=== PATIENT | female | born 1940 | race Caucasian/White ===

== ENCOUNTER → 2016-07-06 | Outpatient (REF) | payer MEDICARE, OTHER | LOC: M SFHCCLAY 09:38 | PROVIDERS: ATTEND Family Medicine | DX: L30.9 Dermatitis, unspecified (principal) ==

== ENCOUNTER → 2016-07-25 | Outpatient (CLI) | payer MEDICARE, OTHER ==
--- NOTE | 2016-07-27 08:52 | DEXA ---
AP SPINE L1 - L4 1.123 -0.6 1.2 LT FEMUR TOTAL 0.768 -1.9 -0.1 RT FEMUR TOTAL 0.769 -1.9 -0.1 TOTAL BODY TOTAL OTHER DUAL FEMUR FRAX* ASSESSMENT Risk factors: Premature menopause, rheumatoid arthritis. 10 year probability of fracture Major osteoporotic fracture 20.8 % Hip fracture 7.0 % COMMENTS: Normal bone densitometry of the spine. There is low bone density of the hips. FOLLOW-UP: Recommendation for the next bone density exam: 2 years. MTDD
== END ==
LOC: M WHC 11:27
PROVIDERS: ATTEND Family Medicine
DX: M81.0 Age-related osteoporosis without current pathological fracture (principal); M40.204 Unspecified kyphosis, thoracic region

== ENCOUNTER → 2017-04-26 | Outpatient (CLI) | payer MEDICARE, OTHER ==
[2017-04-26 18:56] LABS: EOS # 0.2 10^3/uL (0.0-0.50); EOS % 2.7 % (0.0-3.0); HEMATOCRIT 33.8 % (36.0-47.0); HEMOGLOBIN 11.5 g/dl (12.0-16.0); IMMATURE GRANULOCYTE % 0.2 % (0-0); LYMPH # 2.4 10^3/uL (1.5-4.5); LYMPH % 40.1 % (24.0-44.0); MEAN CORPUSCULAR VOLUME 94.2 fl (80.0-96.0); MONO # 0.4 10^3/uL (0.0-0.8); MONO % 7.4 % (0.0-5.0); NEUTROPHILS % 49.6 % (36.0-66.0); PLATELET COUNT, AUTOMATED 173 10^3/uL (150-450); RED BLOOD COUNT 3.59 10^6/uL (4.00-5.40); RED CELL DISTRIBUTION WIDTH 12.5 % (11.5-14.5); WHITE BLOOD COUNT 5.9 10^3/uL (4.0-10.0)
[2017-04-26 19:57] LABS: ALBUMIN 3.8 GM/DL (3.2-5.2); ALBUMIN/GLOBULIN RATIO 1.15 (1.00-1.93); ALKALINE PHOSPHATASE 40 U/L (45-117); ALT/SGPT 20 U/L (12-78); ANION GAP 5 MEQ/L (8-16); AST/SGOT 23 U/L (7-37); BILIRUBIN,TOTAL 0.6 MG/DL (0.2-1.0); BLOOD UREA NITROGEN 34 MG/DL (7-18); CALCIUM LEVEL 9.5 MG/DL (8.8-10.2); CARBON DIOXIDE LEVEL 29 MEQ/L (21-32); CHLORIDE LEVEL 103 MEQ/L (98-107); CREATININE FOR GFR 1.64 MG/DL (0.55-1.02); GLOMERULAR FILTRATION RATE 32.3 (>39); GLUCOSE, FASTING 82 MG/DL (70-100); SODIUM LEVEL 137 MEQ/L (136-145); TOTAL PROTEIN 7.1 GM/DL (6.4-8.2)
[2017-04-26 19:59] LABS: POTASSIUM SERUM 5.5 MEQ/L (3.5-5.1)
== END ==
LOC: M WUC 15:45
DX: N39.0 Urinary tract infection, site not specified (principal)
CPT/HCPCS: 80053

== ENCOUNTER → 2017-04-26 | Outpatient (REF) | payer MEDICARE, OTHER | LOC: M LAB REF 16:58 | DX: N39.0 Urinary tract infection, site not specified (principal) | CPT/HCPCS: 87186 ==

== ENCOUNTER → 2018-07-11 | Outpatient (REF) | payer MEDICARE, OTHER ==
[2018-07-11 17:27] LABS: CREATININE FOR GFR 0.97 MG/DL (0.55-1.30); GLOMERULAR FILTRATION RATE 59.1 (>39); POTASSIUM SERUM 4.5 MEQ/L (3.5-5.1)
[2018-07-11 17:28] LABS: ALBUMIN 3.7 GM/DL (3.2-5.2); BILIRUBIN,TOTAL 0.8 MG/DL (0.2-1.0); TOTAL PROTEIN 7.1 GM/DL (6.4-8.2)
[2018-07-11 17:29] LABS: HEMATOCRIT 37.4 % (36.0-47.0); HEMOGLOBIN 12.6 g/dl (12.0-15.5); MEAN CORPUSCULAR HEMOGLOBIN 31.7 pg (27.0-33.0); MEAN CORPUSCULAR HGB CONC 33.7 g/dl (32.0-36.5); MEAN CORPUSCULAR VOLUME 94.2 fl (80.0-96.0); PLATELET COUNT, AUTOMATED 178 10^3/uL (150-450); RED BLOOD COUNT 3.97 10^6/uL (4.00-5.40); WHITE BLOOD COUNT 5.7 10^3/uL (4.0-10.0)
== END ==
LOC: M SFHCCLAY 13:33
PROVIDERS: ATTEND Family Medicine
DX: I10 Essential (primary) hypertension (principal); J84.112 Idiopathic pulmonary fibrosis

== ENCOUNTER 2018-07-30 05:20 | Inpatient (IN) | payer MEDICARE, OTHER ==
[~2018-07-30] VITALS: Ht 149.9 cm; Wt 63.6 kg
[2018-07-30] MEDS ORDERED: METOPROLOL TART 25 MG TABLET PO ONE (05:45)
[2018-07-30] MEDS ORDERED: NS 500 ML IV ONE ×2 (05:45→07:00)
[2018-07-30] MEDS ORDERED: FLECAINIDE 50MG TABLET PO ONE (05:45)
[2018-07-30 05:55] LABS: BASO % 0.2 % (0.0-1.0); EOS % 0.1 % (0.0-3.0); HEMATOCRIT 33.6 % (36.0-47.0); HEMOGLOBIN 11.5 g/dl (12.0-15.5); LYMPH # 1.2 10^3/uL (1.5-4.5); LYMPH % 12.5 % (24.0-44.0); MEAN CORPUSCULAR HEMOGLOBIN 32.4 pg (27.0-33.0); MEAN CORPUSCULAR HGB CONC 34.2 g/dl (32.0-36.5); MEAN CORPUSCULAR VOLUME 94.6 fl (80.0-96.0); MONO # 0.6 10^3/uL (0.0-0.8); MONO % 6.4 % (0.0-5.0); NEUTROPHILS # 7.8 10^3/uL (1.8-7.7); NEUTROPHILS % 80.3 % (36.0-66.0); PLATELET COUNT, AUTOMATED 144 10^3/uL (150-450); RED BLOOD COUNT 3.55 10^6/uL (4.00-5.40); WHITE BLOOD COUNT 9.7 10^3/uL (4.0-10.0)
[2018-07-30] MEDS ORDERED: METO200T28 PO (05:59)
[2018-07-30] MEDS ORDERED: PARO5TAB PO (05:59)
[2018-07-30] MEDS ORDERED: FISH1000 PO (05:59)
[2018-07-30] MEDS ORDERED: LANS15CA PO (05:59)
[2018-07-30] MEDS ORDERED: FURO20TA2 PO (05:59)
[2018-07-30] MEDS ORDERED: SPIR-10 PO (05:59)
[2018-07-30] MEDS ORDERED: CALCTAB89 PO (05:59)
[2018-07-30] MEDS ORDERED: LISI-538 PO (05:59)
[2018-07-30 06:07] LABS: INR 1.08; PROTHROMBIN TIME 14.1 SECONDS (12.1-14.4)
[2018-07-30 06:46] LABS: CALCIUM LEVEL 8.1 MG/DL (8.8-10.2); CREATININE FOR GFR 1.09 MG/DL (0.55-1.30); FREE THYROXINE INDEX 2.8 % (1.3-4.8); GLOMERULAR FILTRATION RATE 51.7 (>39); MAGNESIUM LEVEL 1.3 MG/DL (1.8-2.4); MB/CK RELATIVE INDEX 2.46 (< OR =4); POTASSIUM SERUM 3.9 MEQ/L (3.5-5.1); THYROID STIMULATING HORMONE 2.69 uIU/ML (0.358-3.740); THYROXINE (T4) 8.1 UG/DL (4.5-12.0); TROPONIN I 0.2 NG/ML (< 0.10)
[2018-07-30] MEDS ORDERED: MAGNESIUM OXIDE 400 MG TAB (MAG-OX) PO ONE (07:00)
[2018-07-30] MEDS ORDERED: LANS30CA PO (08:12)
[2018-07-30] MEDS ORDERED: CALCCAP4 PO (08:17)
[2018-07-30] MEDS ORDERED: METO1TAB33 PO (08:20)
[2018-07-30] MEDS ORDERED: ACETAMINOPHEN TAB 650MG DOSE (2X325MG) PO PRN (09:15)
[2018-07-30] MEDS ORDERED: MAG SULF 1GM/100ML (MAG RUN) 1 GM in APPROPRIATE DILUENT 1 EA IV ONE (10:00)
[2018-07-30 10:15] VITALS: BP 131/83
[2018-07-30] MEDS: LISINOPRIL 20 MG TAB PO SCH (11:04)
[2018-07-30] MEDS: PARoxetine 10MG TABLET PO SCH (11:04)
[2018-07-30] MEDS: OMEPRAZOLE 20 MG CAP PO SCH (11:05)
[2018-07-30] MEDS: SPIRONOLACTONE 25 MG TAB PO SCH (11:05)
[2018-07-30 12:00] VITALS: BP 122/73
--- NOTE | 2018-07-30 14:48 | ECGEPIP ---
Stationary ECG Study [facility] - ED Test Date: 2018-07-30 Pat Name: SKYLAR FLORES Department: Room: - Gender: F Marketing Account Manager: miguel : 1940 Requested By: NATALIE MEDINA Order Number: [id number] Reading MD: Dany Olmstead Measurements Intervals [place] Rate: 146 P: NE: 0 QRS: 24 QRSD: 92 T: 88 QT: 282 QTc: 440 Interpretive Statements ATRIAL FIBRILLATION WITH RAPID VENTRICULAR RESPONSE SEPTAL MYOCARDIAL INFARCTION, OF INDETERMINATE AGE Delayed anterior R wave progression Comparison tracing not on file Electronically Signed On 07-30-2018 14:48:47 EDT by Dany Olmstead
--- NOTE | 2018-07-30 14:51 | ECGEPIP ---
Stationary ECG Study [facility] - ED Test Date: 2018-07-30 Pat Name: SKYLAR FLORES Department: Room: - Gender: F Bench Press Operator: EVAN : 1940 Requested By: NATALIE MEDINA Order Number: [id number] Reading MD: Dany Olmstead Measurements Intervals [place] Rate: 72 P: 33 IN: 162 QRS: 2 QRSD: 106 T: 77 QT: 380 QTc: 416 Interpretive Statements SINUS RHYTHM WITH OCCASIONAL SUPRAVENTRICULAR PREMATURE COMPLEXES SEPTAL MYOCARDIAL INFARCTION, OF INDETERMINATE AGE Delayed anterior R wave progression Tracing done 526 on the same day showed afib with rvr Electronically Signed On 07-30-2018 14:51:20 EDT by Dany Olmstead
--- NOTE | 2018-07-30 15:47 | CR.PDOC ---
General Date of Consultation: Jul 30, 2018 [address]SULTATION [address]. VENCES. HISTORY OF PRESENT ILLNESS: Ewa is a 78-year-old female with past medical history of dilated cardiomyopathy, chronic systolic heart failure, AICD placement, thoracic aortic aneurysm, essential hypertension who presents to the emergency department after her defibrillator shocked her 3 times at home. The patient states that overnight at around 3 AM she awoke to use the restroom, she stated she finished urinating and after that noticed that she was being shocked by her defibrillator. She sustained another shock about 15 to 20 minutes later w hen she was sitting down in her recliner in her living room. She states she had another shock for a total of 3 and then activated EMS. In the emergency department she was found to be in atrial fibrillation with RVR and was given a one-time dose of 300 mg of flecainide and converted spontaneously to normal sinus rhythm. She has not been ill recently and denies any changes to her medication. She denies having any chest pain during these events or prior to them, she's had no difficulty breathing or shortness of breath. She is taking all her medications as she should and does not skip any doses, she takes metoprolol 200 mg daily. She does admit to being very fatigued for the past 2-3 days with diffuse body weakness. No muscle aches or chills, no fevers. No diarrhea or nausea or vomiting. Her last office note was reviewed, was seen by cardiology December 2017 and was doing well at that time. She did have an echocardiogram performed in December 2017 that showed ejection fraction of 55%. Her [facility] AICD was recently checked in June 2017 and was without abnormality. ALLERGIES: Please see below. HOME MEDICATIONS: Please see below. PAST MEDICAL HISTORY: Nonischemic cardiomyopathy, systolic heart failure, thoracic aortic aneurysm last measured at 4.6 cm, AICD placement, hypertension PAST SURGICAL HISTORY: Bladder repair in 1995, cholecystectomy 1994, colonoscopy 2002, hysterectomy 1979, heart catheterization in May 2012 SOCIAL HISTORY: She is a former smoker, no alcohol use REVIEW OF SYSTEMS: CONSTITUTIONAL: States that she feels well right now, is a bit fatigued and weak HEENT: No changes in vision or headache CARDIOVASCULAR: Denies any presyncopal or syncopal events, no chest pain or palpitations RESPIRATORY: No shortness of breath, cough or wheeze. GENITOURINARY: Denies any pain with urination or blood in urine GASTROINTESTINAL: No change of bowel habits, no blood in stool, no dark black stool SKIN: No new rash PHYSICAL EXAMINATION: VITAL SIGNS: Please see below. GENERAL APPEARANCE: Pleasant 78-year-old female who appears her stated age, laying in bed comfortably, in no acute distress HEENT: EOMI, nares patent bilaterally, moist mucous membranes RESPIRATORY: Clear to auscultation throughout, no rales, rhonchi or wheezing appreciated. CARDIOVASCULAR: Diastolic murmur appreciated, otherwise normal S1 and S2, no gallops or rubs ABDOMEN: Soft, normoactive bowel sounds 4, no masses appreciated no hepatosplenomegaly, no pain with palpation. no Distention or rebound rigidity or guarding EXTREMITIES: No cyanosis, mottling or edema NEUROLOGICAL: No focal deficits appreciated LABORATORY DATA: Please see below. ASSESSMENT/PLAN: Ewa is a 78-year-old female with past medical history of dilated nonischemic cardiomyopathy, chronic systolic heart failure, AICD placement, essential hypertension and thoracic aneurysm who presents to the emergency department with generalized weakness and fatigue after her defibrillator had shocked her 3 times at home, she was found to be in A. fib RVR in the emergency department. 1. First episode of A. fib RVR Patient recently had her device checked in June 2018, without abnormality. EKG in ED reviewed, pt did present with A. fib RVR that converted on subsequent EKG's to NSR s/p Flecainide dose. Unfortunately because it did defibrillate at home, this portends a poor prognostic factor for her. We will interrogate her device again this afternoon. We'll recommend that she be anticoagulated with Lovenox as it has a short half-life, in case she does need cardiac catheterization in the near future, the anticoagulation could be reversed quickly. She could be discharged on a DOAC however. She did have an initial troponin I was slightly elevated at 0.2, which suggest rechecking it this afternoon and in the morning. She may possibly need a stress test or angiogram in the future if it is found that she actually experienced VT. This could represent an isolated case of atrial fibrillation. Would not suggest continuing to give her flecainide. She may continue on her home dose of metoprolol 200 mg daily. She did sustain a brief episode of bradycardia, this is likely transient, she was asymptomatic. Would recommend getting a repeat echocardiogram this visit. We will continue to follow with the patient and make recommendations as her clinical course progresses. Addendum MD Caro: Patient interviewed and examined, chart reviewed, ICD interrogated. Agree with 's note. 78yo female with non-ischemic CMP with partial recovery of LV systolic function. She received 3 shocks in close succession for AF with RVR. No obvious trigger, no CHF, no CP. Because of very fast HR in spite of high dose of BB will start patient on Amiodarone to reduce the risk of the event repeating itself. Plan to reevaluate LV EF with ECHO and obtain additional set of troponin tomorrow. Patient was DNI/R on my arrival but when I reviewed the DNR/I status with her it became obvious that she dose not understand the implications. She wants to attempt resuscitation but dose not want any prolonged life sustaining measures. We changed her status accordingly. Vital Signs/I&O Vital Signs Date Time Temp Pulse Resp B/P (MAP) Pulse Ox O2 Delivery O2 Flow Rate FiO2 07/30/18 12:00 97.8 75 18 122/73 (89) 98 07/30/18 07:39 Room Air Laboratory Data Labs 24H Laboratory Tests 2 07/30/18 05:49: Immature Granulocyte % (Auto) 0.5, White Blood Count 9.7, Red Blood Count 3.55L, Hemoglobin 11.5L, Hematocrit 33.6L, Mean Corpuscular Volume 94.6, Mean Corpuscular Hemoglobin 32.4, Mean Corpuscular Hemoglobin Concent 34.2, Red Cell Distribution Width 13.0, Platelet Count 144L, Neutrophils (%) (Auto) 80.3H, Lymphocytes (%) (Auto) 12.5L, Monocytes (%) (Auto) 6.4H, Eosinophils (%) (Auto) 0.1, Basophils (%) (Auto) 0.2, Neutrophils # (Auto) 7.8H, Lymphocytes # (Auto) 1.2L, Monocytes # (Auto) 0.6, Eosinophils # (Auto) 0.0, Basophils # (Auto) 0.0, Nucleated Red Blood Cells % (auto) 0.0, Prothrombin Time 14.1, Prothromb Time International Ratio 1.08, Activated Partial Thromboplast Time 23.0L 07/30/18 06:10: Anion Gap 7L, Glomerular Filtration Rate 51.7, Blood Urea Nitrogen 15, Creatinine 1.09, Sodium Level 141, Potassium Level 3.9, Chloride Level 108H, Carbon Dioxide Level 26, Calcium Level 8.1L, Total Creatine Kinase 61, Magnesium Level 1.3L, Creatine Kinase MB 2.0, Creatine Kinase MB Relative Index 2.46, Troponin I 0.20H, Thyroid Stimulating Hormone (TSH) 2.690, Free Thyroxine Index 2.8, Thyroxine (T4) 8.1, Triiodothyronine (T3) Uptake 34 07/30/18 10:26: Troponin I 0.50#H 07/30/18 12:17: Troponin I 0.49H 07/30/18 15:04: CBC/BMP Laboratory Tests 07/30/18 05:49 Red Blood Count 3.55 L, Mean Corpuscular Volume 94.6, Mean Corpuscular Hemoglobin 32.4, Mean Corpuscular Hemoglobin Concent 34.2, Red Cell Distribution Width 13.0, Neutrophils (%) (Auto) 80.3 H, Lymphocytes (%) (Auto) 12.5 L, Monocytes (%) (Auto) 6.4 H, Eosinophils (%) (Auto) 0.1, Basophils (%) (Auto) 0.2, Neutrophils # (Auto) 7.8 H, Lymphocytes # (Auto) 1.2 L, Monocytes # (Auto) 0.6, Eosinophils # (Auto) 0.0, Basophils # (Auto) 0.0 07/30/18 06:10 Calcium Level 8.1 L, Total Creatine Kinase 61 Allergies Coded Allergies: metronidazole (Verified Allergy, Unknown, 07/30/18) Home Medications Scheduled Calcium Carbonate/Vitamin D3 (Calcium 600 + Vit D 400 Softgl) 1 Each Capsule, 1 CAP PO BID, (Reported) Furosemide (Furosemide) 20 Mg Tablet, 20 MG PO DAILY, (Reported) Lansoprazole (Lansoprazole) 30 Mg Capsule.dr, 30 MG PO DAILY, (Reported) Lisinopril (Lisinopril) 20 Mg Tablet, 20 MG PO DAILY, (Reported) Metoprolol Succinate (Metoprolol Succinate) 100 Mg Tab.er.24h, 200 MG PO DAILY, (Reported) Mildred-3 Fatty Acids/Fish Oil (Fish Oil 1,000 mg Capsule) 1 Each Capsule, 2,000 MG PO DAILY, (Reported) Paroxetine (Paroxetine HCl) 10 Mg Tablet, 10 MG PO DAILY, (Reported) Spironolactone (Spironolactone) 25 Mg Tablet, 25 MG PO DAILY, (Reported) GME ATTESTATION GME ATTESTATION My faculty preceptor for this patient encounter was physically present during the encounter and was fully available. All aspects of the patient interview, examination, medical decision making process, and medical care plan development were reviewed and approved by the faculty preceptor. The faculty preceptor is aware and concurs with the plan as stated in the body of this note and will attest to such by his/her cosignature. VIVIANA SWEENEY DO Jul 30, 2018 15:47 Martín Vences MD Jul 30, 2018 21:00
[2018-07-30 16:00] VITALS: BP 122/73
[2018-07-30] MEDS: ENOXAPARIN 60 MG/0.6 ML SYR (J1650) SC SCH (18:39)
[2018-07-30 20:00] VITALS: BP 108/72
[2018-07-30] MEDS: AMIODARONE 200 MG TAB (PACERONE) PO SCH (20:04)
[2018-07-30 23:59] VITALS: BP 128/61
[2018-07-31 04:00] VITALS: BP 144/81
[2018-07-31] MEDS: ENOXAPARIN 60 MG/0.6 ML SYR (J1650) SC SCH ×2 (05:33→18:06)
[2018-07-31 06:19] LABS: HEMATOCRIT 30.3 % (36.0-47.0); MEAN CORPUSCULAR HEMOGLOBIN 31.6 pg (27.0-33.0); MEAN CORPUSCULAR VOLUME 95.9 fl (80.0-96.0); PLATELET COUNT, AUTOMATED 121 10^3/uL (150-450); RED BLOOD COUNT 3.16 10^6/uL (4.00-5.40); WHITE BLOOD COUNT 5.6 10^3/uL (4.0-10.0)
[2018-07-31 06:45] LABS: ALBUMIN 2.6 GM/DL (3.2-5.2); ALT/SGPT 21 U/L (12-78); BILIRUBIN,TOTAL 0.9 MG/DL (0.2-1.0); BLOOD UREA NITROGEN 12 MG/DL (7-18); CALCIUM LEVEL 8.1 MG/DL (8.8-10.2); CARBON DIOXIDE LEVEL 26 MEQ/L (21-32); CHLORIDE LEVEL 109 MEQ/L (98-107); CREATININE FOR GFR 0.82 MG/DL (0.55-1.30); GLOMERULAR FILTRATION RATE > 60.0 (>39); GLUCOSE, FASTING 100 MG/DL (70-100); MAGNESIUM LEVEL 1.6 MG/DL (1.8-2.4); POTASSIUM SERUM 3.8 MEQ/L (3.5-5.1); SODIUM LEVEL 141 MEQ/L (136-145); TROPONIN I 0.32 NG/ML (< 0.10)
[2018-07-31 07:43] VITALS: BP 120/88
[2018-07-31] MEDS: OMEPRAZOLE 20 MG CAP PO SCH (08:37)
[2018-07-31] MEDS: METOPROLOL SUCC (TopROL XL) 100MG *XL* TAB PO SCH (08:37)
[2018-07-31] MEDS: PARoxetine 10MG TABLET PO SCH (08:37)
[2018-07-31] MEDS: AMIODARONE 200 MG TAB (PACERONE) PO SCH ×2 (08:37→20:55)
[2018-07-31] MEDS: SPIRONOLACTONE 25 MG TAB PO SCH (08:37)
[2018-07-31] MEDS: LISINOPRIL 20 MG TAB PO SCH (08:37)
--- NOTE | 2018-07-31 10:30 | IPNPDOC ---
Subjective Date Seen The patient was seen on 07/31/18. Subjective Chief Complaint/HPI a fib General: Denies: Chills Eyes: Denies: Vision change Pulmonary: Denies: Dyspnea, Cough Cardiovascular: Denies: Chest Pain, Palpitations Gastrointestinal: Denies: Nausea, Vomiting, Abdominal Pain Neurological: Reports: Weakness Psych: Reports: Mood Normal Objective Physical Examination General Exam: Positive: Alert, Cooperative, No Acute Distress Chest Exam: Positive: Normal air movement, Diminished; Negative: Rales, Rhonchi, Wheezing Heart Exam: Positive: Rate Normal, Normal S1, Normal S2; Negative: Gallops, Murmurs, Rubs Telemetry: Positive: No significant arrhythmia Abdomen Exam: Positive: Normal bowel sounds; Negative: Tenderness, Hepatospenomegaly Extremity Exam: Positive: Normal pulses; Negative: Edema Skin Exam: Negative: Rash, Breakdown A-FIB/CHADSVASC A-FIB History Current/History of A-Fib/PAF?: Yes Assessment /Plan Assessment ASSESSMENT/PLAN: Ewa is a 78-year-old female with past medical history of 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 fib RVR in the emergency department. 1. First episode of A. fib RVR Overnight telemetry was evaluated, her rates are still spiking at times and she is in and out of atrial fib. No obvious trigger for the A. fib. she has no CHF nor CP. EKG in ED reviewed, pt did present with A. fib RVR that converted on subsequent EKG's to NSR s/p Flecainide dose. Her device was interrogated on this visit and showed numerous episodes of a. fib RVR. Because of very fast HR in spite of high dose of BB she is now on Amiodarone to reduce the risk of the event repeating itself. Plan to reevaluate LV EF with ECHO today, her repeat troponin has come down to .32 from .42. Repeat for AM. Her DNR status has been updated. She wants to attempt resuscitation but dose not want any prolonged life sustaining measures. We changed her status accordingly. Continue with anti coagulation with Lovenox as it has a short half-life, in case she does need cardiac catheterization in the near future, the anticoagulation could be reversed quickly. She could be discharged on a DOAC however. This could represent an isolated case of atrial fibrillation. Would not suggest continuing to give her flecainide. She may continue on her home dose of metoprolol 200 mg daily. She did sustain a brief episode of bradycardia yesterday Will check EKG in AM. this is likely transient, she was asymptomatic. Would recommend getting a repeat echocardiogram this visit. We will continue to follow with the patient and make recommendations as her clinical course progresses. Plan/VTE VTE Prophylaxis Ordered?: Yes VS, I&O, 24H, Fishbone Vital Signs/I&O Vital Signs Date Time Temp Pulse Resp B/P (MAP) Pulse Ox O2 Delivery O2 Flow Rate FiO2 07/31/18 08:37 92 120/88 07/31/18 07:43 96.6 18 94 07/30/18 07:39 Room Air I&O- Last 24 Hours up to 6 AM 07/31/18 06:00 Intake Total 2040 ml Output Total 450 ml Balance 1590 ml Laboratory Data 24H LABS Laboratory Tests 2 07/30/18 10:26: Troponin I 0.50#H 07/30/18 12:17: Troponin I 0.49H 07/30/18 15:04: Troponin I 0.42H 07/31/18 05:31: Troponin I 0.32#H, Nucleated Red Blood Cells % (auto) 0.0, Anion Gap 6L, Glomerular Filtration Rate > 60.0, Blood Urea Nitrogen 12, Creatinine 0.82, Sodium Level 141, Potassium Level 3.8, Chloride Level 109H, Carbon Dioxide Level 26, Calcium Level 8.1L, Aspartate Amino Transf (AST/SGOT) 23, Alanine Aminotransferase (ALT/SGPT) 21, Alkaline Phosphatase 36L, Total Bilirubin 0.9, Total Protein 6.0L, Albumin 2.6L, Magnesium Level 1.6L, Albumin/Globulin Ratio 0.76L CBC/BMP Laboratory Tests 07/31/18 05:31 Red Blood Count 3.16 L, Mean Corpuscular Volume 95.9, Mean Corpuscular Hemoglobin 31.6, Mean Corpuscular Hemoglobin Concent 33.0, Red Cell Distribution Width 13.0, Calcium Level 8.1 L, Aspartate Amino Transf (AST/SGOT) 23, Alanine Aminotransferase (ALT/SGPT) 21, Alkaline Phosphatase 36 L, Total Bilirubin 0.9, Total Protein 6.0 L, Albumin 2.6 L GME ATTESTATION GME ATTESTATION My faculty preceptor for this patient encounter was physically present during the encounter and was fully available. All aspects of the patient interview, examination, medical decision making process, and medical care plan development were reviewed and approved by the faculty preceptor. The faculty preceptor is aware and concurs with the plan as stated in the body of this note and will attest to such by his/her cosignature. VIVIANA SWEENEY DO Jul 31, 2018 10:30
--- NOTE | 2018-07-31 11:16 | IPNPDOC ---
Subjective Date Seen The patient was seen on 07/31/18. Subjective Chief Complaint/HPI Patient lying in bed comfortably as I entered the room. She offers no complaints this morning. She is awaiting ECHO to be performed this afternoon Constitutional: Denies: Chills, Fever Pulmonary: Denies: Dyspnea, Cough Cardiovascular: Denies: Chest Pain, Palpitations, Orthopnea, Edema Gastrointestinal: Denies: Nausea, Vomiting, Abdominal Pain Psych: Reports: Mood Normal Objective Physical Examination General Exam: Positive: Alert, Cooperative, No Acute Distress Chest Exam: Positive: Normal air movement; Negative: Rales, Rhonchi, Wheezing Heart Exam: Positive: Rate Normal, Normal S1, Normal S2; Negative: Gallops, Murmurs, Rubs Telemetry: Positive: No significant arrhythmia Abdomen Exam: Positive: Normal bowel sounds; Negative: Tenderness, Hepatospenomegaly Extremity Exam: Positive: Normal pulses; Negative: Edema Skin Exam: Negative: Rash, Breakdown A-FIB/CHADSVASC A-FIB History Current/History of A-Fib/PAF?: Yes Age/Risk Factor Scoring CHADSVASC: CHADSVASC Response (Comments) Value Age Risk Factor Age >/= 75 years old 2 Gender Risk Factor Female 1 Hx of CHF No 0 Hx of HTN Yes 1 Hx of Stroke/TIA/or VTE No 0 Hx of Diabetes No 0 Hx of Vascular Disease No 0 Total 4 Assessment /Plan Problems (1) Atrial fibrillation with RVR Status: Acute Response to Treatment: Stable Problem Specific Plan: Consult Specialist Problem Text: 07/31/18: Patient was given single dose of Flecainide and has remained in NSR. Cardiology is following. She was started on Amiodarone 400mg po bid. She is scheduled for ECHO today. I will discuss with attending regarding DOAC. She is on Lovenox for now per Cardiology pending the possibility of needing cardiac cath. (2) Cardiomyopathy Status: Chronic Response to Treatment: Stable Problem Text: 07/31/18: ECHO today. Cardiology is following (3) HTN (hypertension) Status: Chronic Response to Treatment: Stable Problem Text: 07/31/18: B/P stable on current antihypertensive regimen (4) Defibrillator discharge Status: Acute Response to Treatment: Stable Problem Text: 07/31/18: Device interrogated during visit. Cardiology following Plan/VTE VTE Prophylaxis Ordered?: Yes (Lovenox ) VS, I&O, 24H, [facility] Vital Signs/I&O Vital Signs Date Time Temp Pulse Resp B/P (MAP) Pulse Ox O2 Delivery O2 Flow Rate FiO2 07/31/18 08:37 92 120/88 07/31/18 07:43 96.6 18 94 07/30/18 07:39 Room Air I&O- Last 24 Hours up to 6 AM 07/31/18 06:00 Intake Total 2040 ml Output Total 450 ml Balance 1590 ml Laboratory Data 24H LABS Laboratory Tests 2 07/30/18 12:17: Troponin I 0.49H 07/30/18 15:04: Troponin I 0.42H 07/31/18 05:31: Troponin I 0.32#H, Nucleated Red Blood Cells % (auto) 0.0, Anion Gap 6L, Glomerular Filtration Rate > 60.0, Blood Urea Nitrogen 12, Creatinine 0.82, Sodium Level 141, Potassium Level 3.8, Chloride Level 109H, Carbon Dioxide Level 26, Calcium Level 8.1L, Aspartate Amino Transf (AST/SGOT) 23, Alanine Aminotr ansferase (ALT/SGPT) 21, Alkaline Phosphatase 36L, Total Bilirubin 0.9, Total Protein 6.0L, Albumin 2.6L, Magnesium Level 1.6L, Albumin/Globulin Ratio 0.76L CBC/BMP Laboratory Tests 07/31/18 05:31 Red Blood Count 3.16 L, Mean Corpuscular Volume 95.9, Mean Corpuscular Hemoglobin 31.6, Mean Corpuscular Hemoglobin Concent 33.0, Red Cell Distribution Width 13.0, Calcium Level 8.1 L, Aspartate Amino Transf (AST/SGOT) 23, Alanine Aminotransferase (ALT/SGPT) 21, Alkaline Phosphatase 36 L, Total Bilirubin 0.9, Total Protein 6.0 L, Albumin 2.6 L [place] Jul 31, 2018 11:16
--- NOTE | 2018-07-31 11:24 | HPE ---
DATE OF ADMISSION: 07/30/2018 PRIMARY CARE PROVIDER: Butch Dominguez MD HISTORY: This is an 78-year-old female patient who presented to [facility] emergency room accompanied by her family. She awoke this morning and got up and went to the bathroom. While she was on the toilet her defibrillator discharged twice. There was a third event about 5 minutes later. Patient reports that in the last 3 or 4 days she has felt generally weak although denies any other symptoms or concerns. She follows with Dr. Laird in the outpatient setting and the emergency room has been in contact with Dr. Laird who has advised for admission. PAST MEDICAL HISTORY: Her past medical history includes essential hypertension, aneurysm of the thoracic aorta and empiric fasting glucose. History of Hepatitis C. Idiopathic pulmonary fibrosis. Esophageal reflux chronic sytolic congestive heart failure, dilated cardiomyopathy. MEDICATIONS: Her current medications include - spironolactone 25 mg daily - Lisinopril 20 mg daily - furosemide 20 mg daily - metoprolol succinate 100 mg two tablets daily - Prevacid 30 mg daily - Paroxetine 10 mg daily - Tylenol arthritis 650 mg every 4-6 hours as needed for pain - Calcium with D one tablet twice daily - Stanton 3 1000 mg one capsule twice daily SURGICAL HISTORY: Includes cholecystectomy in 1994, bladder repair in 1995, hysterectomy in 1979, detached retina in July 2006, cardiac catheterization in august of 2006, colonoscopy in 2002, internal defibrillator placed in 2012, left shoulder surgery. FAMILY HISTORY: Non-contributory. SOCIAL HISTORY: She does not smoke. She quit back in 1979. She resides at home with her son. She is a and she does not drink alcohol or use any recreational drug use. She does have a Medical Orders for Life-Sustaining Treatment (MOLST) form which identifies her as DO NOT RESUSCITATE, A TRIAL PERIOD OF INTUBATION. ALLERGIES: FLAGYL, which causes redness and itching. REVIEW OF SYSTEMS: Patient denies any lightheadedness, dizziness, recurrent headaches, significant changes in her vision or hearing, mouth sores or lesions, sore throat. She denies any neck pain or neck swelling. She denies any shortness of breath or dyspnea on exertion, paroxysmal nocturnal dyspnea. She has not had a cough. She denies any chest pain, feeling as though her heart is racing or skipping beats. She has no diarrhea, constipation, melena, hematochezia, dysuria, hematuria or polyuria or polydipsia, polyphagia. She denies any muscle weakness, just feels generally weakened with low energy. PHYSICAL EXAMINATION: Vital signs: Temperature 96.7, pulse is 69, respirations are 22, blood pressure 98/63, pulse ox is 93 on room air. GENERAL: This is an elderly female lying int emergency room [facility]. She appears comfortable. She has family at bed side. HEENT: Head is normocephalic, atraumatic. Pupils equal, round, and reactive to light and accommodation. Oropharynx is pink and moist. Neck is supple without lymphadenopathy. CARDIOVASCULAR: Regular rate and rhythm. She has no audible murmur. Her lungs are diminished although clear. She has no wheezes, rales or rhonchi. No crackles in the bases. ABDOMEN: Slightly obese, soft, non-tender. She has positive bowel sounds. She has no palpable hepatosplenomegaly. EXTREMITIES: Are without clubbing, cyanosis or edema. INVESTIGATIONS: Reveal a WBC of 9.7, hemoglobin 11.5, hematocrit 33.6, platelets are 144. INR is 1.08, creatinine is 1.09, glucose was 125, calcium is 8.1, mag was 1.3, troponins 0.2. Otherwise TSH, thyroid studies and electrolytes are normal. ASSESSMENT AND PLAN: Discharge of her defibrillator. Patient will be admitted to the progressive care unit (PCU) for telemetry, Her Lasix will be held. Her spironolactone, lisinopril and metoprolol will be continued with hold parameters. Dr. Laird has been consulted and plans to see the patient. Hypomagnesemia. Patient has received a dose of mag oxide in the emergency room. I am going to give her one mag run this morning and we will check her magnesium level in the morning. Empiric fasting glucose. Monitoring as an outpatient. Cardiomyopathy. Management is per Dr. Laird. This is the reason why she has the defibrillator. Chronic systolic congestive heart failure. She does appear compensated today. This will need to be monitored closely. I have held her Lasix. Deep vein thrombosis prophylaxis. I am going to place her on sequential compression devices (SCDs) and thromboembolic deterrent stockings (TEDS). No pharmacologic prophylaxis at this point as I am awaiting further recommendations from cardiology. DISPOSITION: Patient will be admitted to the progressive care unit (PCU) for telemetry. She will need physical therapy prior to discharge once cleared by cardiology.
[2018-07-31 12:00] VITALS: BP 130/80
[2018-07-31 16:00] VITALS: BP 133/76
--- NOTE | 2018-07-31 19:51 | ECHO ---
DATE OF PROCEDURE: 07/31/2018 REFERRING PHYSICIAN: Dr. Dominguez, Dr. Richmond INDICATION: Atrial fibrillation with rapid ventricular response. Height 150 cm, weight 64 kg. DIMENSIONS: IVS: 0.9 LV: 4.4 LVPW: 1.0 LA: 3.8 Aorta: 4.2 Ascending aorta: 4.6 IVC: 2.8 Mitral E wave velocity: 67 A wave: 54 E prime septal: 7.4 E prime lateral: 9.0 FINDINGS: The study is of acceptable technical quality even though apical views were rather limited. Left ventricle is normal size. It is grossly of normal contractility even though on some images there appears to be mild apical and distal lateral wall motion abnormality. Overall left ventricular systolic function is preserved, computer calculated ejection fraction (EF) was 55%, which appears very conceivable. The right ventricle is normal size and systolic function. Left atrium appears at least mildly enlarged. Right atrium is normal size. Aortic valve is poorly visualized; it is trileaflet, but I cannot comment much on its anatomy. Mitral valve appears grossly normal, tricuspid valve appears normal. Pulmonic valve was not well seen. There is an echo artifact in right-sided heart chambers consistent with implantable cardioverter defibrillator (ICD) lead. Inferior vena cava is dilated but appropriately collapses with respiration, indicative of mildly elevated central venous pressure. Aortic root and ascending aorta are dilated (4.2 and 4.6 cm respectively). Abdominal aorta and aortic arch were not well seen. Doppler interrogation of aortic valve reveals trivial stenosis and approximately mild to moderate insufficiency. There is probably moderate mitral insufficiency and mild tricuspid insufficiency. Calculated pulmonary artery pressure is around 50-55 mmHg, which corresponds to moderate pulmonary hypertension. Mitral inflow pattern and tissue Doppler imaging of mitral annulus indicate grade 2 diastolic dysfunction. CONCLUSIONS: 1. Study is of acceptable technical quality. 2. Normal LV size with preserved LV systolic function and grade 2 diastolic dysfunction. 3. Poorly visualized aortic valve with trivial stenosis and mild to moderate insufficiency. 4. Moderate mitral insufficiency. 5. Elevated central venous pressure and moderate pulmonary hypertension. 6. Dilated aortic root and ascending aorta (4.2 and 4.6 cm respectively). COMMENT: Subacute bacterial endocarditis (SBE) prophylaxis is not recommended. MTDD
[2018-07-31 20:00] VITALS: BP 130/73
[2018-08-01] VITALS: BP 116/58
[2018-08-01 04:00] VITALS: BP 125/75
[2018-08-01] MEDS: ENOXAPARIN 60 MG/0.6 ML SYR (J1650) SC SCH (05:45)
[2018-08-01 06:12] LABS: ALBUMIN 2.7 GM/DL (3.2-5.2); ALT/SGPT 23 U/L (12-78); BILIRUBIN,TOTAL 0.8 MG/DL (0.2-1.0); BLOOD UREA NITROGEN 12 MG/DL (7-18); CALCIUM LEVEL 8.6 MG/DL (8.8-10.2); CARBON DIOXIDE LEVEL 29 MEQ/L (21-32); CHLORIDE LEVEL 109 MEQ/L (98-107); CREATININE FOR GFR 0.87 MG/DL (0.55-1.30); GLOMERULAR FILTRATION RATE > 60.0 (>39); GLUCOSE, FASTING 100 MG/DL (70-100); MAGNESIUM LEVEL 1.6 MG/DL (1.8-2.4); POTASSIUM SERUM 4.3 MEQ/L (3.5-5.1); SODIUM LEVEL 141 MEQ/L (136-145); TROPONIN I 0.16 NG/ML (< 0.10)
[2018-08-01 08:00] VITALS: BP 120/68
[2018-08-01] MEDS: AMIODARONE 200 MG TAB (PACERONE) PO SCH (08:16)
[2018-08-01] MEDS: OMEPRAZOLE 20 MG CAP PO SCH (08:16)
[2018-08-01] MEDS: LISINOPRIL 20 MG TAB PO SCH (08:16)
[2018-08-01] MEDS: PARoxetine 10MG TABLET PO SCH (08:16)
[2018-08-01] MEDS: SPIRONOLACTONE 25 MG TAB PO SCH (08:16)
[2018-08-01 08:17] VITALS: BP 125/75
[2018-08-01] MEDS: METOPROLOL SUCC (TopROL XL) 100MG *XL* TAB PO SCH (08:17)
[2018-08-01] MEDS ORDERED: AMIO200T PO (10:33)
--- NOTE | 2018-08-01 13:02 | IPNPDOC ---
Subjective Date Seen The patient was seen on 08/01/18. Subjective Chief Complaint/HPI defibrillations General: Reports: Fatigue Constitutional: Reports: Weakness Cardiovascular: Denies: Chest Pain, Palpitations Gastrointestinal: Denies: Nausea, Vomiting, Abdominal Pain Neurological: Reports: Weakness Psych: Reports: Mood Normal Objective Physical Examination General Exam: Positive: Alert, Cooperative, No Acute Distress Chest Exam: Positive: Normal air movement; Negative: Rales, Rhonchi, Wheezing Heart Exam: Positive: Rate Normal, Normal S1, Normal S2; Negative: Gallops, Murmurs, Rubs Telemetry: Positive: No significant arrhythmia Abdomen Exam: Positive: Normal bowel sounds; Negative: Tenderness, Hepatospenomegaly Extremity Exam: Positive: Normal pulses; Negative: Edema Skin Exam: Negative: Rash, Breakdown Psych Exam: Positive: Oriented x 3 A-FIB/CHADSVASC A-FIB History Current/History of A-Fib/PAF?: Yes Age/Risk Factor Scoring CHADSVASC: CHADSVASC Response (Comments) Value Age Risk Factor Age >/= 75 years old 2 Gender Risk Factor Female 1 Hx of CHF No 0 Hx of HTN Yes 1 Hx of Stroke/TIA/or VTE No 0 Hx of Diabetes No 0 Hx of Vascular Disease No 0 Total 4 Assessment /Plan Assessment ASSESSMENT/PLAN: Ewa is a 78-year-old female with past medical history of 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 fib RVR in the emergency department. 1. First episode of A. fib RVR There was no obvious trigger for the A. fib. she has no CHF nor CP again on exam today. She will need to continue her Amiodorone 400 mg BID once she is discharged, which from a cardiac standpoint could be today. The nursing staff will walk her today to make sure she feels strong enough to go home. She states she feels well today. She should be seen in our office two weeks after discharge. The pt did present with A. fib RVR that converted on subsequent EKG's to NSR s/p Flecainide dose in the ED. Her device was interrogated yesterday and showed numerous episodes of a. fib RVR. Due to her fast HR in spite of high dose of BB therapy, she was started on Amiodarone. This will take a few days to achieve maximum effect. It was explained to her and her daughter that the defibrillation could happen again at home but it is hopeful that with the ad dition of amiodarone that that wouldn't happen again. Her ECHO this visit showed an EF of 55%, so there has been no interval change in her cardiac function. Her repeat troponins have been down trending. She will likely need a stress test once discharged, on follow up. She was anticoagulated with Lovenox but could be discharged on a DOAC. She may continue on her home dose of metoprolol 200 mg daily. She is suitable to go home from a cardiac standpoint with the above recommendations. Plan/VTE VTE Prophylaxis Ordered?: Yes (Lovenox ) VS, I&O, 24H, Fishbone Vital Signs/I&O Vital Signs Date Time Temp Pulse Resp B/P (MAP) Pulse Ox O2 Delivery O2 Flow Rate FiO2 08/01/18 08:17 70 125/75 08/01/18 08:00 98.8 17 94 07/30/18 07:39 Room Air I&O- Last 24 Hours up to 6 AM0 08/01/18 06:00 Intake Total 650 ml Output Total 350 ml Balance 300 ml Laboratory Data 24H LABS Laboratory Tests 2 08/01/18 05:23: Anion Gap 3L, Glomerular Filtration Rate > 60.0, Blood Urea Nitrogen 12, Creatinine 0.87, Sodium Level 141, Potassium Level 4.3, Chloride Level 109H, Carbon Dioxide Level 29, Calcium Level 8.6L, Aspartate Amino Transf (AST/SGOT) 29, Alanine Aminotransferase (ALT/SGPT) 23, Alkaline Phosphatase 37L, Total Bilirubin 0.8, Total Protein 6.0L, Albumin 2.7L, Magnesium Level 1.6L, Troponin I 0.16#H, Albumin/Globulin Ratio 0.82L CBC/BMP Laboratory Tests 08/01/18 05:23 Calcium Level 8.6 L, Aspartate Amino Transf (AST/SGOT) 29, Alanine Aminotransferase (ALT/SGPT) 23, Alkaline Phosphatase 37 L, Total Bilirubin 0.8, Total Protein 6.0 L, Albumin 2.7 L Microbiology Microbiology 07/31/18 Respiratory Virus Panel (PCR) ([facility]) - Final, Complete GME ATTESTATION GME ATTESTATION My faculty preceptor for this patient encounter was physically present during the encounter and was fully available. All aspects of the patient interview, examination, medical decision making process, and medical care plan development were reviewed and approved by the faculty preceptor. The faculty preceptor is aware and concurs with the plan as stated in the body of this note and will attest to such by his/her cosignature. VIVIANA SWEENEY DO August 01, 2018 13:02
--- NOTE | 2018-08-01 19:48 | ECGEPIP ---
Stationary ECG Study [facility] Test Date: 2018-08-01 Pat Name: SKYLAR FLORES Department: Room: [place] [address] Gender: F Toolroom Attendant: SANDRA : 1940 Requested By: VIVIANA SWEENEY Order Number: [id number] Reading MD: Israel Pastrana Measurements Intervals [place] Rate: 67 P: 73 ND: 147 QRS: 11 QRSD: 109 T: 51 QT: 413 QTc: 438 Interpretive Statements Normal sinus rhythm Anterior LA, age indeterminate Nonspecific ST-T wave abnormalities No significant change when compared to prior tracing of 07/30/2018 Electronically Signed On 08-01-2018 19:48:06 EDT by Israel Pastrana
--- NOTE | 2018-08-02 14:14 | DS.PDOC ---
Discharge Summary General Date of Admission Jul 30, 2018 at 09:15 Date of Discharge 08/01/18 Primary Care Physician: Butch Dominguez MD Attending Physician: FIORELLA LOMBARDO DO Specialist/Consultants Involve: Martín Laird MD Discharge Summary PROCEDURES PERFORMED DURING STAY: ECHO CONCLUSIONS: 1. Study is of acceptable technical quality. 2. Normal LV size with preserved LV systolic function and grade 2 diastolic dysfunction. 3. Poorly visualized aortic valve with trivial stenosis and mild to moderate insufficiency. 4. Moderate mitral insufficiency. 5. Elevated central venous pressure and moderate pulmonary hypertension. 6. Dilated aortic root and ascending aorta (4.2 and 4.6 cm respectively). ADMITTING DIAGNOSES: 1. Atrial Fibrillation COMPLICATIONS/CHIEF COMPLAINT: Defibrillator Discharge Hypomagnesium Weakness. HISTORY OF PRESENT ILLNESS: This is an 78-year-old female patient who presented to [facility] emergency room accompanied by her family. She awoke in the morning and got up and went to the bathroom. While she was on the toilet her defibrillator discharged twice. There was a third event about 5 minutes later. Patient reported that in the last 3 or 4 days she has felt generally weak although denies any other symptoms or concerns. She follows with Dr. Laird in the outpatient setting and the emergency room has been in contact with Dr. Laird who has advised for admission. HOSPITAL COURSE: (1) Atrial fibrillation with RVR: Patient was given single dose of Flecainide in ER and converted back to NSR. She remained in NSR throughout her hospital course. Cardiology followed her during the course of her hospitalization. She was started on Amiodarone 400mg po bid. ECHO as above. She was maintained on all her previous home medications. She completed PT and was considered safe for discharge. She was started on Eliquis 5mg po bid (med sent to pharmacy via [facility]) (2) Cardiomyopathy: ECHO today. Cardiology is following (3) HTN: B/P stable on current antihypertensive regimen (4) Defibrillator discharge: Device interrogated during visit. Her device was interrogated yesterday and showed numerous episodes of a. fib RVR. DISCHARGE MEDICATIONS: Please see below. ALLERGIES: Please see below. PHYSICAL EXAMINATION ON DISCHARGE: VITAL SIGNS: Please see below. GENERAL: AOx3, in NAD HEENT: Unremarkable NECK: soft, supple, no bruits, no JVD CARDIOVASCULAR EXAMINATION: RRR RESPIRATORY EXAMINATION: CTA ABDOMINAL EXAMINATION: soft, non-tender, non-distended EXTREMITIES:no edema SKIN: warm, dry LABORATORY DATA: Please see below. IMAGING: None PROGNOSIS: Good ACTIVITY: As tolerated DIET: Low Na+ diet DISCHARGE PLAN: Home, F/U with cardiology in 2 weeks DISPOSITION: 01 Home, Self-Care. DISCHARGE INSTRUCTIONS: 1. F/U with PCP in one week 2. F/U with cardiology in 2 weeks 3. Eliquis sent via [facility] DISCHARGE CONDITION: Stable Vital Signs/I&Os Vital Signs Date Time Temp Pulse Resp B/P (MAP) Pulse Ox O2 Delivery O2 Flow Rate FiO2 08/01/18 08:17 70 125/75 08/01/18 08:00 98.8 17 94 07/30/18 07:39 Room Air I&O- Last 24 Hours up to 6 AM 08/02/18 06:00 Intake Total 120 ml Output Total 0 ml Balance 120 ml Microbiology Microbiology 07/31/18 Respiratory Virus Panel (PCR) ([facility]) - Final, Complete Discharge Medications Scheduled Amiodarone HCl (Amiodarone HCl) 200 Mg Tablet, 400 MG PO BID Calcium Carbonate/Vitamin D3 (Calcium 600 + Vit D 400 Softgl) 1 Each Capsule, 1 CAP PO BID, (Reported) Furosemide (Furosemide) 20 Mg Tablet, 20 MG PO DAILY, (Reported) Lansoprazole (Lansoprazole) 30 Mg Capsule.dr, 30 MG PO DAILY, (Reported) Lisinopril (Lisinopril) 20 Mg Tablet, 20 MG PO DAILY, (Reported) Metoprolol Succinate (Metoprolol Succinate) 100 Mg Tab.er.24h, 200 MG PO DAILY, (Reported) [place]-3 Fatty Acids/Fish Oil (Fish Oil 1,000 mg Capsule) 1 Each Capsule, 2,000 MG PO DAILY, (Reported) Paroxetine (Paroxetine HCl) 10 Mg Tablet, 10 MG PO DAILY, (Reported) Spironolactone (Spironolactone) 25 Mg Tablet, 25 MG PO DAILY, (Reported) Allergies Coded Allergies: metronidazole (Verified Allergy, Unknown, 07/30/18) RUSS OAKES August 02, 2018 07:02
== END 2018-08-01 13:35 | disposition home or self-care (01) | DRG 309 ==
LOC: M ED 05:20 → M ED INP 09:15 → M PCU 10:14
PROVIDERS: ADMIT Family Medicine; ATTEND Family Medicine
DX: I48.91 Unspecified atrial fibrillation (principal); I50.22 Chronic systolic (congestive) heart failure; E83.42 Hypomagnesemia; I42.0 Dilated cardiomyopathy; Z79.899 Other long term (current) drug therapy; Z88.8 Allergy status to other drugs, medicaments and biological substances; I11.0 Hypertensive heart disease with heart failure; B18.2 Chronic viral hepatitis C; J84.10 Pulmonary fibrosis, unspecified; K21.9 Gastro-esophageal reflux disease without esophagitis; Z95.810 Presence of automatic (implantable) cardiac defibrillator; Z66 Do not resuscitate; I71.2 Thoracic aortic aneurysm, without rupture

== ENCOUNTER → 2018-10-02 | Outpatient (REF) | payer MEDICARE, OTHER ==
[~2018-10-02] MED LIST: AMIO200T PO; CALCCAP4 PO; CALCTAB89 PO; FISH1000 PO; FURO20TA2 PO; LANS15CA PO; LANS30CA PO; LISI-538 PO; METO1TAB33 PO; METO200T28 PO; PARO5TAB PO; SPIR-10 PO
[2018-10-02 16:45] LABS: BILIRUBIN,TOTAL 0.6 MG/DL (0.2-1.0); CALCIUM LEVEL 9.9 MG/DL (8.8-10.2); CREATININE FOR GFR 1.41 MG/DL (0.55-1.30); GLOMERULAR FILTRATION RATE 38.4 (>39); POTASSIUM SERUM 4.6 MEQ/L (3.5-5.1)
[2018-10-02 16:46] LABS: ALBUMIN 3.7 GM/DL (3.2-5.2); FREE T4 1.11 NG/DL (0.76-1.46); PERCENT SATURATION 37.3 % (13.2-45.0); THYROID STIMULATING HORMONE 4.48 uIU/ML (0.358-3.740); TOTAL PROTEIN 7.3 GM/DL (6.4-8.2)
[2018-10-02 16:47] LABS: FOLATE 21.6 NG/ML (>5.4)
== END ==
LOC: M SFHCCLAY 12:00
PROVIDERS: ATTEND Family Medicine
DX: D64.9 Anemia, unspecified (principal); I48.0 Paroxysmal atrial fibrillation
CPT/HCPCS: 80053; 82607; 82746; 83550; 84439; 84443; G0463

== ENCOUNTER → 2018-10-16 | Outpatient (REF) | payer MEDICARE, OTHER ==
[2018-10-16 16:36] LABS: ALBUMIN 3.5 GM/DL (3.2-5.2); CALCIUM LEVEL 9.5 MG/DL (8.8-10.2); CREATININE FOR GFR 1.45 MG/DL (0.55-1.30); GLOMERULAR FILTRATION RATE 37.2 (>39); PHOSPHORUS LEVEL 3.5 MG/DL (2.5-4.9); POTASSIUM SERUM 4.2 MEQ/L (3.5-5.1)
== END ==
LOC: M SFHCCLAY 09:43
PROVIDERS: ATTEND Family Medicine
DX: N18.3 Chronic kidney disease, stage 3 (moderate) (principal)

== ENCOUNTER → 2018-12-17 | Outpatient (REF) | payer MEDICARE, OTHER ==
[2018-12-17 17:32] LABS: ALBUMIN 3.5 GM/DL (3.2-5.2); CALCIUM LEVEL 9.3 MG/DL (8.8-10.2); CREATININE FOR GFR 1.43 MG/DL (0.55-1.30); GLOMERULAR FILTRATION RATE 37.8 (>39); PHOSPHORUS LEVEL 3.7 MG/DL (2.5-4.9); POTASSIUM SERUM 4.4 MEQ/L (3.5-5.1)
== END ==
LOC: M SFHCCLAY 10:01
PROVIDERS: ATTEND Family Medicine
DX: I12.9 Hypertensive chronic kidney disease with stage 1 through stage 4 chronic kidney disease, or unspecified chronic kidney disease (principal); N18.3 Chronic kidney disease, stage 3 (moderate)

== ENCOUNTER → 2019-01-31 | Outpatient (REF) | payer MEDICARE, OTHER ==
[2019-02-01 12:16] LABS: FREE T4 0.99 NG/DL (0.76-1.46); THYROID STIMULATING HORMONE 5.91 uIU/ML (0.358-3.740)
== END ==
LOC: M SFHCCLAY 11:16
PROVIDERS: ATTEND Family Medicine
DX: I48.91 Unspecified atrial fibrillation (principal)

== ENCOUNTER → 2019-07-31 | Outpatient (REF) | payer MEDICARE, OTHER ==
[~2019-07-31] MED LIST changes: -AMIO200T PO; +AMIO200T3 PO; +AMLO25TA PO; +AMOX500C; +K-TA10TA2 PO; +LANS30CA93; -LISI-538 PO; +LISI20TA33 PO; +SYNT25TA
[2019-07-31 16:53] LABS: ALBUMIN 3.6 GM/DL (3.2-5.2); CALCIUM LEVEL 9.4 MG/DL (8.8-10.2); CREATININE FOR GFR 1.19 MG/DL (0.55-1.30); FREE T4 1.04 NG/DL (0.76-1.46); GLOMERULAR FILTRATION RATE 46.6 (>39); MAGNESIUM LEVEL 1.6 MG/DL (1.8-2.4); PHOSPHORUS LEVEL 3.8 MG/DL (2.5-4.9); POTASSIUM SERUM 4.5 MEQ/L (3.5-5.1); THYROID STIMULATING HORMONE 9.77 uIU/ML (0.358-3.740)
== END ==
LOC: M SFHCCLAY 11:32
PROVIDERS: ATTEND Family Medicine
DX: R79.89 Other specified abnormal findings of blood chemistry (principal); I10 Essential (primary) hypertension; E83.42 Hypomagnesemia
CPT/HCPCS: 80069; 83735; 84439; 84443; G0463

== ENCOUNTER 2019-10-03 15:27 | Emergency (ER) | payer MEDICARE, OTHER ==
[~2019-10-03] VITALS: Ht 147.3 cm; Wt 61.2 kg
[~2019-10-03 15:27] MED LIST changes: +AMIO200T PO; -AMIO200T3 PO; -AMLO25TA PO; -AMOX500C; -K-TA10TA2 PO; -LANS30CA93; +LISI-538 PO; -LISI20TA33 PO; -SYNT25TA
[2019-10-03] MEDS ORDERED: K-TA10TA2 PO (15:35)
[2019-10-03] MEDS ORDERED: AMLO25TA PO (15:35)
[2019-10-03] MEDS ORDERED: LANS30CA93 (15:35)
[2019-10-03] MEDS ORDERED: AMIO200T PO (15:35)
[2019-10-03] MEDS ORDERED: AMOX500C (15:35)
[2019-10-03] MEDS ORDERED: SYNT25TA (15:35)
[2019-10-03] MEDS ORDERED: LIDOCAINE 2% MDV 20ML VIAL SC ONE (16:00)
[2019-10-03 16:34] VITALS: BP 121/61
== END 2019-10-03 16:36 | disposition home or self-care (01) ==
LOC: M ED 15:27
DX: S61.411A Laceration without foreign body of right hand, initial encounter (principal); S60.811A Abrasion of right wrist, initial encounter; X50.9XXA Other and unspecified overexertion or strenuous movements or postures, initial encounter; Y92.89 Other specified places as the place of occurrence of the external cause; Y93.89 Activity, other specified; Y99.9 Unspecified external cause status; I10 Essential (primary) hypertension; Z86.19 Personal history of other infectious and parasitic diseases; Z79.899 Other long term (current) drug therapy; Z88.8 Allergy status to other drugs, medicaments and biological substances

== ENCOUNTER → 2020-01-29 | Outpatient (REF) | payer MEDICARE, OTHER ==
[~2020-01-29] MED LIST changes: -AMIO200T PO; +AMIO200T3 PO; +AMLO25TA PO; +AMOX500C; +K-TA10TA2 PO; +LANS30CA93; +SYNT25TA
[2020-01-29 17:27] LABS: ALBUMIN 3.4 GM/DL (3.2-5.2); BILIRUBIN,TOTAL 0.5 MG/DL (0.2-1.0); CALCIUM LEVEL 9.3 MG/DL (8.8-10.2); CREATININE FOR GFR 1.35 MG/DL (0.55-1.30); FREE T4 1.07 NG/DL (0.76-1.46); GLOMERULAR FILTRATION RATE 40.3 (>39); POTASSIUM SERUM 4.6 MEQ/L (3.5-5.1); THYROID STIMULATING HORMONE 6.11 uIU/ML (0.358-3.740); TOTAL PROTEIN 6.9 GM/DL (6.4-8.2)
== END ==
LOC: M SFHCCLAY 12:26
PROVIDERS: ATTEND Family Medicine
DX: I48.0 Paroxysmal atrial fibrillation (principal); R41.3 Other amnesia; Z23 Encounter for immunization
CPT/HCPCS: 80053; 82140; 82607; 84439; 84443; 90682; G0008; G0463

== ENCOUNTER → 2020-03-09 | Outpatient (REF) | payer MEDICARE, OTHER ==
[2020-03-09 17:01] LABS: FREE T4 1.34 NG/DL (0.76-1.46); MAGNESIUM LEVEL 1.7 MG/DL (1.8-2.4); THYROID STIMULATING HORMONE 2.71 uIU/ML (0.358-3.740)
== END ==
LOC: M SFHCCLAY 10:53
PROVIDERS: ATTEND Family Medicine
DX: E03.9 Hypothyroidism, unspecified (principal); E83.42 Hypomagnesemia

== ENCOUNTER → 2020-03-19 | Outpatient (CLI) | payer MEDICARE, OTHER ==
--- NOTE | 2020-03-19 11:21 | REP ---
INDICATION: COUGH. COMPARISON: January 26, 2016. TECHNIQUE: Two views.. FINDINGS: There is a hazy opacity in the right base of posteriorly consistent with infiltrate and/or atelectasis. This is most prominent on lateral film where it is seen posteriorly overlying the spine. There is mild linear fibrosis in the left base. Lung reilly are otherwise clear. Cardiomegaly is observed. Cardiothoracic ratio is 54.0%. The thoracic aorta is tortuous and calcific. Pulmonary vasculature is not increased. IMPRESSION: New infiltrate right lower lobe consistent with pneumonia. Cardiomegaly with pacemaker.. <Electronically signed by Tanner Harding > 03/19/20 [id number]
== END ==
LOC: M CLY 10:42
PROVIDERS: ATTEND Physician Assistant
DX: R91.8 Other nonspecific abnormal finding of lung field (principal); I51.7 Cardiomegaly; R05 Cough; Z95.0 Presence of cardiac pacemaker
CPT/HCPCS: 71046; G0463

== ENCOUNTER → 2020-05-08 | Outpatient (CLI) | payer MEDICARE, OTHER ==
[~2020-05-08] MED LIST changes: -LISI-538 PO; +LISI20TA33 PO
--- NOTE | 2020-05-08 17:05 | REP ---
INDICATION: COUGH; RECHECK RLL PNEUMONIA COMPARISON: 03/19/2020. TECHNIQUE: PA/Lateral FINDINGS: The previously noted right lower lobe infiltrate is improved but there is mild residual still present. The remaining lung reilly are unchanged and clear. No new infiltrate is seen. Cardiomegaly persists. There is calcification and tortuosity of the thoracic aorta. The mediastinal silhouette is unchanged. A single lead pacemaker is unchanged. There are mild degenerative changes of the spine. IMPRESSION: Mild residual right lower lobe infiltrate which has improved since the prior study. Continued follow-up recommended. <Electronically signed by Mook Mendez > 05/08/20 [id number]
== END ==
LOC: M CLY 15:11
PROVIDERS: ATTEND Physician Assistant
DX: R91.8 Other nonspecific abnormal finding of lung field (principal); I51.7 Cardiomegaly; R05 Cough; Z95.0 Presence of cardiac pacemaker
CPT/HCPCS: 71046; G0463

== ENCOUNTER → 2020-05-15 | Outpatient (REF) | payer MEDICARE, OTHER ==
[2020-05-15 16:07] LABS: FREE T4 0.92 NG/DL (0.76-1.46); THYROID STIMULATING HORMONE 8.35 uIU/ML (0.358-3.740)
== END ==
LOC: M SFHCCLAY 09:43
PROVIDERS: ATTEND Family Medicine
DX: E03.9 Hypothyroidism, unspecified (principal)

== ENCOUNTER → 2020-05-20 | Outpatient (CLI) | payer MEDICARE, OTHER ==
--- NOTE | 2020-05-20 14:21 | REP ---
INDICATION: PNEUMONIA RIGHT LOWER LOBE; FOLLOW UP CXR. COMPARISON: Comparison chest x-ray 08 May 2020. TECHNIQUE: Two views.. FINDINGS: The lungs are hyperinflated with flattening of the hemidiaphragms and increase in the AP diameter of the chest unchanged. Moderate cardiac enlargement is observed. Cardiothoracic ratio is 56.1%. The aorta is tortuous and calcific as before. A unipolar pacemaker is seen in the right heart view of the left side. Pulmonary vasculature is not increased. There is no evidence of pleural effusion. There are mild degenerative changes in the thoracic spine. No infiltrate is seen IMPRESSION: Hyperinflation. Cardiomegaly with pacemaker. No infiltrate seen.. <Electronically signed by Tanner Harding > 05/20/20 [id number]
== END ==
LOC: M CLY 13:53
PROVIDERS: ATTEND Family Medicine
DX: I51.7 Cardiomegaly (principal); M51.34 Other intervertebral disc degeneration, thoracic region; J18.9 Pneumonia, unspecified organism; Z95.0 Presence of cardiac pacemaker
CPT/HCPCS: 71046; G0463

== ENCOUNTER → 2020-08-17 | Outpatient (REF) | payer MEDICARE, OTHER ==
[2020-08-17 11:46] LABS: BLOOD UREA NITROGEN 9 MG/DL (7-18); CALCIUM LEVEL 8.7 MG/DL (8.8-10.2); CARBON DIOXIDE LEVEL 31 MEQ/L (21-32); CHLORIDE LEVEL 104 MEQ/L (98-107); CREATININE FOR GFR 0.92 MG/DL (0.55-1.30); FREE T4 1.14 NG/DL (0.76-1.46); GLOMERULAR FILTRATION RATE > 60.0 (>32); GLUCOSE, FASTING 88 MG/DL (70-100); POTASSIUM SERUM 3.8 MEQ/L (3.5-5.1); SODIUM LEVEL 138 MEQ/L (136-145)
== END ==
LOC: M SFHCCLAY 09:42
PROVIDERS: ATTEND Family Medicine
DX: I10 Essential (primary) hypertension (principal); E03.9 Hypothyroidism, unspecified

== ENCOUNTER → 2020-08-19 | Outpatient (CLI) | payer MEDICARE, OTHER ==
--- NOTE | 2020-08-19 15:30 | REP ---
INDICATION: M76.31, ILIOTIBIAL BAND SYNDROME OF RIGHT SIDE COMPARISON: None. TECHNIQUE: Two views right hip. FINDINGS: There is no evidence of acute fracture, dislocation, or intrinsic bone disease.There is mild joint space narrowing, subchondral sclerosis and spurring at the hip joint. IMPRESSION: No fracture or dislocation. Mild degenerative changes. <Electronically signed by Mook Mendez > 08/19/20 [id number]
--- NOTE | 2020-08-19 15:31 | REP ---
INDICATION: M76.31, ILIOTIBIAL BAND SYNDROME OF RIGHT SIDE COMPARISON: None. TECHNIQUE: Five views right knee. FINDINGS: There is no evidence of acute fracture, dislocation, or intrinsic bone disease.There is moderate diffuse chondrocalcinosis. There is mild medial joint space narrowing and subchondral sclerosis. There is no definite radiographic evidence of a joint effusion. IMPRESSION: No fracture or dislocation. Moderate diffuse chondrocalcinosis with mild medial joint space narrowing. <Electronically signed by Mook Mendez > 08/19/20 [id number]
--- NOTE | 2020-08-19 15:33 | REP ---
INDICATION: I42.8, OTHER PRIMARY CARDIOMYOPATHIES COMPARISON: 05/20/2020. TECHNIQUE: PA/Lateral FINDINGS: Lungs: There is no acute infiltrate. There is mild stable bibasilar fibro atelectatic change. Heart: There is mild cardiomegaly. Mediastinum: There is calcification and tortuosity of the thoracic aorta. The mediastinal silhouette is unchanged. Pleural angles: Unremarkable.. Bones and soft tissues: There are mild degenerative changes of the spine without compression deformity. Left single lead pacemaker is unchanged. IMPRESSION: No acute pulmonary disease. Mild cardiomegaly and stable chronic findings as discussed above. <Electronically signed by Mook Mendez > 08/19/20 [id number]
== END ==
LOC: M CLY 14:52
PROVIDERS: ATTEND Family Medicine
DX: M16.11 Unilateral primary osteoarthritis, right hip (principal); I51.7 Cardiomegaly; M11.261 Other chondrocalcinosis, right knee; I42.8 Other cardiomyopathies; M76.31 Iliotibial band syndrome, right leg; Z95.0 Presence of cardiac pacemaker
CPT/HCPCS: 71046; 73502; 73564; G0463

== ENCOUNTER → 2020-08-19 | Outpatient (REF) | payer MEDICARE, OTHER ==
[2020-08-20 12:35] LABS: HEMATOCRIT 35.8 % (36.0-47.0); HEMOGLOBIN 11.6 g/dl (12.0-15.5); MEAN CORPUSCULAR HEMOGLOBIN 30.7 pg (27.0-33.0); MEAN CORPUSCULAR HGB CONC 32.4 g/dl (32.0-36.5); MEAN CORPUSCULAR VOLUME 94.7 fl (80.0-96.0); PLATELET COUNT, AUTOMATED 173 10^3/uL (150-450); RED BLOOD COUNT 3.78 10^6/uL (4.00-5.40); WHITE BLOOD COUNT 4.8 10^3/uL (4.0-10.0)
[2020-08-20 13:25] LABS: NT-PRO BNP 1769 PG/ML (<450); VITAMIN B12 LEVEL 419 PG/ML (247-911)
== END ==
LOC: M SFHCCLAY 14:29
PROVIDERS: ATTEND Family Medicine
DX: I42.8 Other cardiomyopathies (principal); I48.0 Paroxysmal atrial fibrillation; E03.9 Hypothyroidism, unspecified; K21.9 Gastro-esophageal reflux disease without esophagitis; I10 Essential (primary) hypertension

== ENCOUNTER → 2020-09-19 | Outpatient (CLI) | payer MEDICARE, OTHER ==
--- NOTE | 2020-09-19 12:13 | REPVR ---
PROCEDURE INFORMATION: Exam: CT Head Without Contrast Exam date and time: 09/19/2020 11:08 AM Age: 80 years old Clinical indication: Altered mental status/memory loss; Additional info: Memory impairment TECHNIQUE: Imaging protocol: Computed tomography of the head without contrast. Radiation optimization: All CT scans at this facility use at least one of these dose optimization techniques: automated exposure control; mA and/or kV adjustment per patient size (includes targeted exams where dose is matched to clinical indication); or iterative reconstruction. COMPARISON: No relevant prior studies available. FINDINGS: Brain: There is low attenuation abnormality in the periventricular white matter consistent with chronic microvascular ischemic changes. There are chronic lacunar infarcts. There is moderate cerebral atrophy. Cerebral ventricles: No ventriculomegaly. Paranasal sinuses: Visualized sinuses are unremarkable. No fluid levels. Mastoid air cells: Visualized mastoid air cells are well aerated. Vasculature: There is moderate intracranial vascular calcification. Bones/joints: Unremarkable. No acute fracture. Soft tissues: Unremarkable. IMPRESSION: 1. There is low attenuation abnormality in the periventricular white matter consistent with chronic microvascular ischemic changes. If an acute infarct is a clinical concern, follow-up MRI with diffusion imaging is recommended. 2. There are chronic lacunar infarcts. 3. There is moderate cerebral atrophy. Electronically signed by: Dustin Richards On 09/19/2020 12:13:28 PM
== END ==
LOC: M RAD 10:57
PROVIDERS: ATTEND Family Medicine
DX: R41.3 Other amnesia (principal); R90.82 White matter disease, unspecified; G31.9 Degenerative disease of nervous system, unspecified; Z86.73 Personal history of transient ischemic attack (TIA), and cerebral infarction without residual deficits

== ENCOUNTER → 2020-10-02 | Outpatient (REF) | payer MEDICARE, OTHER ==
[2020-10-02 11:42] LABS: HEMATOCRIT 37.2 % (36.0-47.0); HEMOGLOBIN 12.3 g/dl (12.0-15.5); MEAN CORPUSCULAR HEMOGLOBIN 31.2 pg (27.0-33.0); MEAN CORPUSCULAR HGB CONC 33.1 g/dl (32.0-36.5); MEAN CORPUSCULAR VOLUME 94.4 fl (80.0-96.0); PLATELET COUNT, AUTOMATED 177 10^3/uL (150-450); RED BLOOD COUNT 3.94 10^6/uL (4.00-5.40); WHITE BLOOD COUNT 5.7 10^3/uL (4.0-10.0)
[2020-10-02 12:07] LABS: CHOLESTEROL RISK RATIO 3.742 (<5)
== END ==
LOC: M SFHCCLAY 09:26
PROVIDERS: ATTEND Family Medicine
DX: F01.50 Vascular dementia, unspecified severity, without behavioral disturbance, psychotic disturbance, mood disturbance, and anxiety (principal); R53.83 Other fatigue; Z79.899 Other long term (current) drug therapy
CPT/HCPCS: 80061; 85027; 93005; G0463

== ENCOUNTER → 2020-12-24 | Outpatient (REF) | payer MEDICARE, OTHER ==
[2020-12-24 12:54] LABS: HEMATOCRIT 33.7 % (36.0-47.0); HEMOGLOBIN 11.3 g/dl (12.0-15.5); MEAN CORPUSCULAR HEMOGLOBIN 31.7 pg (27.0-33.0); MEAN CORPUSCULAR HGB CONC 33.5 g/dl (32.0-36.5); MEAN CORPUSCULAR VOLUME 94.4 fl (80.0-96.0); PLATELET COUNT, AUTOMATED 149 10^3/uL (150-450); RED BLOOD COUNT 3.57 10^6/uL (4.00-5.40); WHITE BLOOD COUNT 4.3 10^3/uL (4.0-10.0)
[2020-12-24 13:01] LABS: BLOOD UREA NITROGEN 7 MG/DL (7-18); CALCIUM LEVEL 8.4 MG/DL (8.8-10.2); CARBON DIOXIDE LEVEL 30 MEQ/L (21-32); CHLORIDE LEVEL 108 MEQ/L (98-107); CREATININE FOR GFR 0.68 MG/DL (0.55-1.30); GLOMERULAR FILTRATION RATE > 60.0 (>32); GLUCOSE, FASTING 94 MG/DL (70-100); NT-PRO BNP 3409 PG/ML (<450); POTASSIUM SERUM 3.8 MEQ/L (3.5-5.1); SODIUM LEVEL 142 MEQ/L (136-145)
== END ==
LOC: M SFHCCLAY 08:13
PROVIDERS: ATTEND Family Medicine
DX: J84.10 Pulmonary fibrosis, unspecified (principal); I42.8 Other cardiomyopathies; I50.22 Chronic systolic (congestive) heart failure

== ENCOUNTER → 2021-01-11 | Outpatient (REF) | payer MEDICARE, OTHER ==
[2021-01-11 16:54] LABS: CALCIUM LEVEL 9.2 MG/DL (8.8-10.2); CREATININE FOR GFR 1.1 MG/DL (0.55-1.30); GLOMERULAR FILTRATION RATE 50.9 (>32)
== END ==
LOC: M SFHCCLAY 10:43
PROVIDERS: ATTEND Family Medicine
DX: I42.8 Other cardiomyopathies (principal); I50.22 Chronic systolic (congestive) heart failure

== ENCOUNTER → 2021-01-27 | Outpatient (REF) | payer MEDICARE, OTHER ==
[2021-01-27 12:28] LABS: CALCIUM LEVEL 9.8 MG/DL (8.8-10.2); CREATININE FOR GFR 1.38 MG/DL (0.55-1.30); GLOMERULAR FILTRATION RATE 39.2 (>32)
== END ==
LOC: M SFHCCLAY 08:09
PROVIDERS: ATTEND Family Medicine
DX: E87.6 Hypokalemia (principal)

== ENCOUNTER 2021-03-27 18:04 | Observation (INO) | payer MEDICARE, OTHER ==
[~2021-03-27] VITALS: Ht 147.3 cm; Wt 52.6 kg
[~2021-03-27 18:04] MED LIST changes: -AMIO200T3 PO; +AMIO200T49 PO
[2021-03-27] MEDS ORDERED: METOPROLOL 5 MG/5 ML VIAL IV SCH (18:20)
[2021-03-27 18:42] LABS: BASO % 0.2 % (0.0-1.0); EOS # 0.1 10^3/uL (0.0-0.5); EOS % 1.1 % (0.0-3.0); HEMATOCRIT 35.4 % (36.0-47.0); LYMPH # 1.1 10^3/uL (1.5-5.0); LYMPH % 19.9 % (24.0-44.0); MEAN CORPUSCULAR HEMOGLOBIN 32.1 pg (27.0-33.0); MEAN CORPUSCULAR HGB CONC 33.9 g/dl (32.0-36.5); MEAN CORPUSCULAR VOLUME 94.7 fl (80.0-96.0); MONO # 0.4 10^3/uL (0.0-0.8); NEUTROPHILS # 3.8 10^3/uL (1.5-8.5); NEUTROPHILS % 71.4 % (36.0-66.0); PLATELET COUNT, AUTOMATED 150 10^3/uL (150-450); RED BLOOD COUNT 3.74 10^6/uL (4.00-5.40); WHITE BLOOD COUNT 5.3 10^3/uL (4.0-10.0)
[2021-03-27] MEDS ORDERED: AMIODARONE HCL 150 MG in IV 1 EA IV STA (18:43)
[2021-03-27 18:53] LABS: INR 1.13
[2021-03-27 18:54] LABS: PARTIAL THROMBOPLASTIN TIME 28.8 SECONDS (25.9-37.0)
[2021-03-27] MEDS ORDERED: POTA-151 PO (19:06)
[2021-03-27] MEDS ORDERED: LEVO50TA5 PO (19:06)
[2021-03-27] MEDS ORDERED: MONT10TA97 PO (19:08)
[2021-03-27] MEDS ORDERED: LORA-930 PO (19:08)
[2021-03-27] MEDS ORDERED: ELIQ5TAB PO (19:08)
[2021-03-27] MEDS ORDERED: SLOWTAB2 PO (19:08)
[2021-03-27] MEDS ORDERED: med rec comment (19:11)
[2021-03-27 19:13] LABS: ALBUMIN 3.5 GM/DL (3.2-5.2); BILIRUBIN,DIRECT 0.1 MG/DL (0.0-0.2); BILIRUBIN,TOTAL 0.5 MG/DL (0.2-1.0); CALCIUM LEVEL 8.7 MG/DL (8.8-10.2); CREATININE FOR GFR 1.67 MG/DL (0.55-1.30); FREE T4 1.25 NG/DL (0.76-1.46); GLOMERULAR FILTRATION RATE 31.4 (>32); MAGNESIUM LEVEL 1.1 MG/DL (1.8-2.4); POTASSIUM SERUM 4.3 MEQ/L (3.5-5.1); THYROID STIMULATING HORMONE 0.849 uIU/ML (0.358-3.740); TOTAL PROTEIN 6.7 GM/DL (6.4-8.2)
[2021-03-27] MEDS ORDERED: HOME MED LIST COMPLETE! XX SCH (19:15)
[2021-03-27 20:18] LABS: RSV AMPLIFICATION NEGATIVE (NEGATIVE)
[2021-03-27] MEDS ORDERED: AMIODARONE HCL 360 MG in IV 1 EA IV SCH (21:00)
[2021-03-27] MEDS ORDERED: NS 1,000 ML IV SCH (23:30)
[2021-03-28] VITALS: BP 105/61
[2021-03-28] MEDS ORDERED: AMIODARONE HCL 360 MG in IV 1 EA IV SCH (03:00)
[2021-03-28 04:00] VITALS: BP 107/56
[2021-03-28] MEDS ORDERED: LEVOTHYROXINE 50MCG TABLET (0.05MG) PO SCH (06:00)
[2021-03-28 07:13] LABS: CREATININE FOR GFR 1.25 MG/DL (0.55-1.30); GLOMERULAR FILTRATION RATE 43.9 (>32); MAGNESIUM LEVEL 1.2 MG/DL (1.8-2.4)
[2021-03-28 08:00] VITALS: BP 107/57
[2021-03-28] MEDS ORDERED: PARoxetine 10MG TABLET PO SCH (09:00)
[2021-03-28] MEDS ORDERED: SPIRONOLACTONE 25 MG TAB PO SCH (09:00)
[2021-03-28] MEDS ORDERED: METOPROLOL SUCC (TopROL XL) 100MG *XL* TAB PO SCH (09:00)
[2021-03-28] MEDS ORDERED: POTASSIUM CHLORIDE 10MEQ SR TABLET PO SCH (09:00)
[2021-03-28] MEDS ORDERED: CALCIUM/VITAMIN D 500 MG TAB PO SCH (09:00)
[2021-03-28] MEDS ORDERED: MAG SULF 1GM/100ML (MAG RUN) 1 GM in IV 1 EA IV SCH (09:00)
[2021-03-28] MEDS ORDERED: MONTELUKAST 10 MG TAB PO SCH (09:00)
[2021-03-28] MEDS ORDERED: FUROSEMIDE 20 MG TAB PO SCH (09:00)
[2021-03-28] MEDS ORDERED: LORATADINE 10 MG TAB PO SCH (09:00)
[2021-03-28] MEDS ORDERED: APIXABAN 2.5 MG TAB (ELIQUIS) PO SCH (09:00)
[2021-03-28 10:03] VITALS: BP 107/57
[2021-03-28] MEDS: MAG SULF 1GM/100ML (MAG RUN) 1 GM in IV 1 EA IV SCH ×2 (11:48→13:39)
[2021-03-28 12:00] VITALS: BP 100/61
[2021-03-28] MEDS ORDERED: AMIO200T49 PO (12:08)
[2021-03-28] MEDS ORDERED: ELIQ2.5T PO (12:08)
[2021-03-28] MEDS ORDERED: AMIODARONE 200 MG TAB (PACERONE) PO SCH (21:00)
== END 2021-03-28 16:30 | disposition home or self-care (01) ==
LOC: M ED 18:04 → M ED INP 18:05 → M PCU 03-28 00:06 → OBSVTOIN 03-28 08:45 → INTOOBSV 03-28 08:45
PROVIDERS: ADMIT Internal Medicine; ATTEND Internal Medicine
DX: I48.0 Paroxysmal atrial fibrillation (principal); N17.9 Acute kidney failure, unspecified; N18.9 Chronic kidney disease, unspecified; E83.42 Hypomagnesemia; I12.9 Hypertensive chronic kidney disease with stage 1 through stage 4 chronic kidney disease, or unspecified chronic kidney disease; F32.A Depression, unspecified; E03.9 Hypothyroidism, unspecified; R63.4 Abnormal weight loss; I42.0 Dilated cardiomyopathy; Z66 Do not resuscitate; Z79.01 Long term (current) use of anticoagulants; Z95.810 Presence of automatic (implantable) cardiac defibrillator; Z79.899 Other long term (current) drug therapy; Z88.8 Allergy status to other drugs, medicaments and biological substances; Z20.822 Contact with and (suspected) exposure to COVID-19; Z87.891 Personal history of nicotine dependence; Z90.49 Acquired absence of other specified parts of digestive tract
CPT/HCPCS: 36415; 71045; 80047; 80048; 80076; 83690; 83735; 83880; 84439; 84443; 84484; 85025; 85610; 85730; 87631; 93005; 93041; 94760; 96361; 96365; 96366; 99285; G0378; J0282; J3475

== ENCOUNTER → 2021-03-31 | Outpatient (REF) | payer MEDICARE, OTHER ==
[~2021-03-31] MED LIST changes: +AMIO200T3 PO; -AMIO200T49 PO; +ELIQ2.5T PO; +ELIQ5TAB PO; +LEVO50TA5 PO; +LORA-930 PO; +MONT10TA10 PO; +POTA20TA6 PO; +SLOWTAB2 PO; +med rec comment
[2021-03-31 16:11] LABS: CALCIUM LEVEL 9.5 MG/DL (8.8-10.2); CREATININE FOR GFR 1.38 MG/DL (0.55-1.30); GLOMERULAR FILTRATION RATE 39.2 (>32); MAGNESIUM LEVEL 1.7 MG/DL (1.8-2.4); POTASSIUM SERUM 4.6 MEQ/L (3.5-5.1)
== END ==
LOC: M SFHCCLAY 10:38
PROVIDERS: ATTEND Family Medicine
DX: I48.0 Paroxysmal atrial fibrillation (principal); E83.42 Hypomagnesemia

== ENCOUNTER → 2021-04-30 | Outpatient (REF) | payer MEDICARE, OTHER ==
[~2021-04-30] MED LIST changes: -AMIO200T3 PO; +AMIO200T49 PO; -MONT10TA10 PO; +MONT10TA97 PO; +POTA-151 PO; -POTA20TA6 PO
[2021-04-30 12:23] LABS: CALCIUM LEVEL 10.7 MG/DL (8.8-10.2); CREATININE FOR GFR 1.79 MG/DL (0.55-1.30); GLOMERULAR FILTRATION RATE 28.9 (>32); POTASSIUM SERUM 5.8 MEQ/L (3.5-5.1)
== END ==
LOC: M SFHCCLAY 08:00
PROVIDERS: ATTEND Family Medicine
DX: N17.9 Acute kidney failure, unspecified (principal)

== ENCOUNTER → 2021-05-10 | Outpatient (REF) | payer MEDICARE, OTHER ==
[2021-05-10 13:10] LABS: CALCIUM LEVEL 9.8 MG/DL (8.8-10.2); CREATININE FOR GFR 1.26 MG/DL (0.55-1.30); GLOMERULAR FILTRATION RATE 43.4 (>32); POTASSIUM SERUM 4.1 MEQ/L (3.5-5.1)
== END ==
LOC: M SFHCCLAY 08:00
PROVIDERS: ATTEND Family Medicine
DX: N17.9 Acute kidney failure, unspecified (principal); I10 Essential (primary) hypertension; E03.9 Hypothyroidism, unspecified

== ENCOUNTER → 2021-06-09 | Outpatient (CLI) | payer MEDICARE, OTHER | LOC: M CLY 10:49 | PROVIDERS: ATTEND Family Medicine | DX: M54.42 Lumbago with sciatica, left side (principal); M54.41 Lumbago with sciatica, right side; M25.78 Osteophyte, vertebrae; M51.36 Other intervertebral disc degeneration, lumbar region ==

== ENCOUNTER → 2021-09-17 | Outpatient (REF) | payer MEDICARE, OTHER ==
[2021-09-17 11:52] LABS: BLOOD UREA NITROGEN 13 MG/DL (7-18); CALCIUM LEVEL 8.6 MG/DL (8.8-10.2); CARBON DIOXIDE LEVEL 33 MEQ/L (21-32); CHLORIDE LEVEL 103 MEQ/L (98-107); CREATININE FOR GFR 0.92 MG/DL (0.55-1.30); GLOMERULAR FILTRATION RATE > 60.0 (>32); GLUCOSE, FASTING 92 MG/DL (70-100); POTASSIUM SERUM 3.8 MEQ/L (3.5-5.1); SODIUM LEVEL 140 MEQ/L (136-145)
== END ==
LOC: M SFHCCLAY 09:12
PROVIDERS: ATTEND Family Medicine
DX: I10 Essential (primary) hypertension (principal)

== ENCOUNTER → 2021-10-25 | Outpatient (REF) | payer MEDICARE, OTHER ==
[2021-10-25 13:42] LABS: HEMOGLOBIN 11.5 g/dl (12.0-15.5); MEAN CORPUSCULAR HEMOGLOBIN 31.9 pg (27.0-33.0); MEAN CORPUSCULAR HGB CONC 32.9 g/dl (32.0-36.5); PLATELET COUNT, AUTOMATED 149 10^3/uL (150-450); RED BLOOD COUNT 3.61 10^6/uL (4.00-5.40); WHITE BLOOD COUNT 4.9 10^3/uL (4.0-10.0)
[2021-10-25 14:28] LABS: ALBUMIN 3.4 GM/DL (3.2-5.2); BILIRUBIN,TOTAL 0.5 MG/DL (0.2-1.0); CALCIUM LEVEL 9.6 MG/DL (8.8-10.2); CREATININE FOR GFR 1.24 MG/DL (0.55-1.30); FREE T4 1.02 NG/DL (0.76-1.46); GLOMERULAR FILTRATION RATE 44.2 (>32); POTASSIUM SERUM 4.4 MEQ/L (3.5-5.1); THYROID STIMULATING HORMONE 4.07 uIU/ML (0.358-3.740); TOTAL PROTEIN 6.4 GM/DL (6.4-8.2)
== END ==
LOC: M SFHCCLAY 07:20
PROVIDERS: ATTEND Family Medicine
DX: I10 Essential (primary) hypertension (principal); I48.91 Unspecified atrial fibrillation; E03.9 Hypothyroidism, unspecified

== ENCOUNTER → 2021-10-28 | Outpatient (REF) | payer MEDICARE, OTHER ==
[2021-10-28 11:52] LABS: FERRITIN 83 NG/ML (8-252); IRON (FE) 82 UG/DL (50-170); LDH LACTATE DEHYDROGENASE 133 U/L (84-246); PERCENT SATURATION 28.9 % (13.2-45.0); TOTAL IRON BINDING CAPACITY 284 UG/DL (250-450); TOTAL PROTEIN 6.2 GM/DL (6.4-8.2)
[2021-10-28 12:21] LABS: VITAMIN B12 LEVEL 468 PG/ML (247-911)
[2021-10-28 12:35] LABS: FOLATE 11.7 NG/ML (>5.4)
[2021-10-29 12:43] LABS: ALBUMIN 3.65 GM/DL (3.29-5.55); ALBUMIN % 58.9 % (55.8-66.1); ALPHA-1-GLOBULIN % 4.1 % (2.9-4.9); ALPHA-1-GLOBULINS 0.25 GM/DL (0.17-0.41); ALPHA-2-GLOBULINS 0.78 GM/DL (0.42-0.99); ALPHA-2-GLOBULINS % 12.5 % (7.1-11.8); BETA-1-GLOBULINS % 5.6 % (4.7-7.2); BETA-2-GLOBULINS % 3.7 % (3.2-6.5); GAMMA GLOBULIN % 15.2 % (11.1-18.8)
[2021-10-29 12:44] LABS: BETA-1-GLOBULINS 0.35 GM/DL (0.28-0.60); BETA-2-GLOBULINS 0.23 GM/DL (0.19-0.55); GAMMA GLOBULINS 0.94 GM/DL (0.65-1.58)
== END ==
LOC: M SFHCCLAY 07:18
PROVIDERS: ATTEND Family Medicine
DX: D64.9 Anemia, unspecified (principal)

== ENCOUNTER → 2022-07-08 | Outpatient (REF) | payer MEDICARE, OTHER ==
[2022-07-08 17:15] LABS: HEMATOCRIT 36.1 % (36.0-47.0); HEMOGLOBIN 11.8 g/dl (12.0-15.5); MEAN CORPUSCULAR HEMOGLOBIN 32.2 pg (27.0-33.0); MEAN CORPUSCULAR HGB CONC 32.7 g/dl (32.0-36.5); MEAN CORPUSCULAR VOLUME 98.6 fl (80.0-96.0); PLATELET COUNT, AUTOMATED 168 10^3/uL (150-450); RED BLOOD COUNT 3.66 10^6/uL (4.00-5.40); WHITE BLOOD COUNT 5.2 10^3/uL (4.0-10.0)
[2022-07-08 17:33] LABS: ALBUMIN 3.3 G/DL (3.2-5.2); BILIRUBIN,TOTAL 0.7 MG/DL (0.3-1.2); CREATININE FOR GFR 1.36 MG/DL (0.55-1.30); GLOMERULAR FILTRATION RATE 39.6 (>32); MAGNESIUM LEVEL 1.7 MG/DL (1.8-2.4); POTASSIUM SERUM 4.8 MMOL/L (3.5-5.1); TOTAL PROTEIN 6.1 G/DL (5.7-8.2)
[2022-07-08 17:35] LABS: FREE T4 1.39 NG/DL (0.89-1.76); THYROID STIMULATING HORMONE 2.773 uIU/ML (0.55-4.78)
== END ==
LOC: M SFHCCLAY 13:33
PROVIDERS: ATTEND Family Medicine
DX: E03.9 Hypothyroidism, unspecified (principal); I10 Essential (primary) hypertension; E83.42 Hypomagnesemia; I48.0 Paroxysmal atrial fibrillation

== ENCOUNTER → 2023-01-05 | Outpatient (CLI) | payer MEDICARE, OTHER ==
[~2023-01-05] MED LIST changes: -K-TA10TA2 PO; +POTA-165 PO
== END ==
LOC: M WHC 15:19
PROVIDERS: ATTEND Family Medicine
DX: E03.9 Hypothyroidism, unspecified (principal); S52.201S Unspecified fracture of shaft of right ulna, sequela; Z78.0 Asymptomatic menopausal state

== ENCOUNTER → 2023-01-06 | Outpatient (REF) | payer MEDICARE, OTHER | LOC: M SFHCCLAY 08:52 | PROVIDERS: ATTEND Family Medicine | DX: E03.9 Hypothyroidism, unspecified (principal) ==

== ENCOUNTER → 2023-01-06 | Outpatient (REF) | payer MEDICARE, OTHER ==
[2023-01-06 12:05] LABS: HEMATOCRIT 40.4 % (36.0-47.0); HEMOGLOBIN 13.2 g/dl (12.0-15.5); MEAN CORPUSCULAR HGB CONC 32.7 g/dl (32.0-36.5); MEAN CORPUSCULAR VOLUME 97.8 fl (80.0-96.0); PLATELET COUNT, AUTOMATED 223 10^3/uL (150-450); RED BLOOD COUNT 4.13 10^6/uL (4.00-5.40); WHITE BLOOD COUNT 6.2 10^3/uL (4.0-10.0)
[2023-01-06 12:14] LABS: ALBUMIN 2.9 G/DL (3.2-5.2); BILIRUBIN,TOTAL 0.7 MG/DL (0.3-1.2); CALCIUM LEVEL 9.3 MG/DL (8.3-10.6); CREATININE FOR GFR 1.43 MG/DL (0.55-1.30); GLOMERULAR FILTRATION RATE 37.4 (>32); POTASSIUM SERUM 4.1 MMOL/L (3.5-5.1); TOTAL PROTEIN 6.1 G/DL (5.7-8.2)
[2023-01-06 12:17] LABS: THYROID STIMULATING HORMONE 4.358 uIU/ML (0.55-4.78)
== END ==
LOC: M LABDRAWC 11:18
PROVIDERS: ATTEND Nurse Practitioner Family
DX: I48.0 Paroxysmal atrial fibrillation (principal); E03.9 Hypothyroidism, unspecified

== ENCOUNTER → 2023-02-02 | Outpatient (CLI) | payer MEDICARE, OTHER | LOC: M WHC 11:30 | PROVIDERS: ATTEND Family Medicine | DX: E03.9 Hypothyroidism, unspecified (principal); S52.201S Unspecified fracture of shaft of right ulna, sequela; Z78.0 Asymptomatic menopausal state; M81.0 Age-related osteoporosis without current pathological fracture; M85.89 Other specified disorders of bone density and structure, multiple sites ==

== ENCOUNTER → 2023-02-07 | Outpatient (REF) | payer MEDICARE, OTHER ==
[2023-02-07 12:32] LABS: CREATININE FOR GFR 1.07 MG/DL (0.55-1.30); GLOMERULAR FILTRATION RATE 52.3 (>32)
== END ==
LOC: M SFHCCLAY 08:42
PROVIDERS: ATTEND Family Medicine
DX: M81.0 Age-related osteoporosis without current pathological fracture (principal)

== ENCOUNTER 2023-04-23 19:54 | Emergency (ER) | payer MEDICARE, OTHER ==
[~2023-04-23] VITALS: Ht 147.3 cm; Wt 62.7 kg
[2023-04-23] MEDS ORDERED: NORCO, ANEXSIA 5/325MG TABLET (HYDROcodone/ACETAMINOPHEN) PO ONE (21:20)
[2023-04-23 22:00] VITALS: BP 125/60
[2023-04-23] MEDS ORDERED: HYDR-3713 PO (22:07)
[2023-04-23] MEDS ORDERED: NORCO 5/325MG TABLET (HOME DOSE PACK) PO ONE (22:10)
[2023-04-23 22:15] VITALS: O2SAT 94
[2023-04-23 22:43] VITALS: TEMP 97.8
== END 2023-04-23 22:52 | disposition home or self-care (01) ==
LOC: EDBD 19:54 → M ED 19:54
DX: S42.292A Other displaced fracture of upper end of left humerus, initial encounter for closed fracture (principal); W19.XXXA Unspecified fall, initial encounter; I10 Essential (primary) hypertension; I50.22 Chronic systolic (congestive) heart failure; Z86.79 Personal history of other diseases of the circulatory system; Z88.1 Allergy status to other antibiotic agents; Z79.01 Long term (current) use of anticoagulants; Z79.811 Long term (current) use of aromatase inhibitors; Z79.899 Other long term (current) drug therapy; Y92.009 Unspecified place in unspecified non-institutional (private) residence as the place of occurrence of the external cause; Y93.89 Activity, other specified; Y99.9 Unspecified external cause status

== ENCOUNTER → 2023-11-16 | Outpatient (REF) | payer MEDICARE, OTHER ==
[~2023-11-16] MED LIST changes: +HYDR-3713 PO; +METO200T15 PO; -METO200T28 PO
== END ==
LOC: M LABDRAWC 16:26
PROVIDERS: ATTEND Internal Medicine Cardiovascular Disease
DX: I48.0 Paroxysmal atrial fibrillation (principal)

== ENCOUNTER → 2023-12-05 | Outpatient (REF) | payer MEDICARE, OTHER ==
[2023-12-05 17:44] LABS: HEMATOCRIT 38.8 % (36.0-47.0); HEMOGLOBIN 12.3 g/dl (12.0-15.5); MEAN CORPUSCULAR HEMOGLOBIN 31.5 pg (27.0-33.0); MEAN CORPUSCULAR HGB CONC 31.7 g/dl (32.0-36.5); MEAN CORPUSCULAR VOLUME 99.5 fl (80.0-96.0); PLATELET COUNT, AUTOMATED 174 10^3/uL (150-450); WHITE BLOOD COUNT 6.3 10^3/uL (4.0-10.0)
[2023-12-05 18:09] LABS: ALBUMIN 3.1 G/DL (3.2-5.2); BILIRUBIN,TOTAL 0.5 MG/DL (0.3-1.2); CALCIUM LEVEL 8.6 MG/DL (8.3-10.6); CHOLESTEROL RISK RATIO 3.52 (<5); CREATININE FOR GFR 1.08 MG/DL (0.55-1.30); FREE T4 1.51 NG/DL (0.89-1.76); GLOMERULAR FILTRATION RATE 51.6 (>32); HDL CHOLESTEROL 36.9 MG/DL (>40); LDL CHOLESTEROL 64.7 MG/DL (<100); NON-HDL-C 93.1 MG/DL; POTASSIUM SERUM 4.7 MMOL/L (3.5-5.1); THYROID STIMULATING HORMONE 3.08 uIU/ML (0.55-4.78); TOTAL PROTEIN 6.5 G/DL (5.7-8.2)
== END ==
LOC: M SFHCCLAY 13:41
PROVIDERS: ATTEND Family Medicine
DX: I10 Essential (primary) hypertension (principal); I48.91 Unspecified atrial fibrillation; E03.9 Hypothyroidism, unspecified; F01.50 Vascular dementia, unspecified severity, without behavioral disturbance, psychotic disturbance, mood disturbance, and anxiety

== ENCOUNTER → 2024-04-18 | Outpatient (REF) | payer MEDICARE, OTHER ==
[2024-04-18 11:45] LABS: BASO % 0.2 % (0.0-1.0); EOS # 0.1 10^3/uL (0.0-0.5); EOS % 1.8 % (0.0-3.0); HEMATOCRIT 37.1 % (36.0-47.0); HEMOGLOBIN 11.9 g/dl (12.0-15.5); LYMPH # 1.8 10^3/uL (1.5-5.0); LYMPH % 40.4 % (24.0-44.0); MEAN CORPUSCULAR HEMOGLOBIN 31.7 pg (27.0-33.0); MEAN CORPUSCULAR HGB CONC 32.1 g/dl (32.0-36.5); MEAN CORPUSCULAR VOLUME 98.9 fl (80.0-96.0); MONO # 0.3 10^3/uL (0.0-0.8); NEUTROPHILS # 2.3 10^3/uL (1.5-8.5); NEUTROPHILS % 50.4 % (36.0-66.0); PLATELET COUNT, AUTOMATED 175 10^3/uL (150-450); RED BLOOD COUNT 3.75 10^6/uL (4.00-5.40); WHITE BLOOD COUNT 4.5 10^3/uL (4.0-10.0)
[2024-04-18 11:54] LABS: ERYTHROCYTE SEDIMENTATION RATE 18 mm/hr (0-30)
[2024-04-18 12:16] LABS: BILIRUBIN,TOTAL 0.6 MG/DL (0.3-1.2); CALCIUM LEVEL 8.8 MG/DL (8.3-10.6); CREATININE FOR GFR 1.01 MG/DL (0.55-1.30); GLOMERULAR FILTRATION RATE 55.6 (>32); POTASSIUM SERUM 4.8 MMOL/L (3.5-5.1); TOTAL PROTEIN 6.7 G/DL (5.7-8.2)
[2024-04-18 12:17] LABS: THYROID STIMULATING HORMONE 4.3 uIU/ML (0.55-4.78)
[2024-04-18 12:18] LABS: FOLATE 12.7 NG/ML (>5.4); FREE T4 1.31 NG/DL (0.89-1.76)
== END ==
LOC: M LABDRAWC 11:01
PROVIDERS: ATTEND Psychiatry & Neurology Neurology
DX: E11.9 Type 2 diabetes mellitus without complications (principal); E07.9 Disorder of thyroid, unspecified; E53.8 Deficiency of other specified B group vitamins

== ENCOUNTER → 2024-05-10 | Outpatient (CLI) | payer MEDICARE, OTHER | LOC: M PLAIMG 13:00 | PROVIDERS: ATTEND Psychiatry & Neurology Neurology | DX: R41.1 Anterograde amnesia (principal); F01.A0 Vascular dementia, mild, without behavioral disturbance, psychotic disturbance, mood disturbance, and anxiety; R26.81 Unsteadiness on feet; J01.40 Acute pansinusitis, unspecified; H74.8X2 Other specified disorders of left middle ear and mastoid ==

== ENCOUNTER → 2024-06-07 | Outpatient (REF) | payer MEDICARE, OTHER ==
[2024-06-07 18:42] LABS: BILIRUBIN,TOTAL 0.4 MG/DL (0.3-1.2); CALCIUM LEVEL 8.8 MG/DL (8.3-10.6); CREATININE FOR GFR 1.07 MG/DL (0.55-1.30); POTASSIUM SERUM 4.1 MMOL/L (3.5-5.1); TOTAL PROTEIN 6.8 G/DL (5.7-8.2)
[2024-06-07 18:43] LABS: THYROID STIMULATING HORMONE 2.406 uIU/ML (0.55-4.78)
[2024-06-07 18:44] LABS: FREE T4 1.46 NG/DL (0.89-1.76)
== END ==
LOC: M SFHCCLAY 13:45
PROVIDERS: ATTEND Physician Assistant
DX: F01.C18 Vascular dementia, severe, with other behavioral disturbance (principal); I48.91 Unspecified atrial fibrillation; I10 Essential (primary) hypertension; E03.9 Hypothyroidism, unspecified; M81.0 Age-related osteoporosis without current pathological fracture; K21.9 Gastro-esophageal reflux disease without esophagitis; R32 Unspecified urinary incontinence